=== PATIENT | female | born 1940 | race Caucasian/White ===

== ENCOUNTER 2018-01-03 10:37 | Outpatient (CLI) | payer MEDICARE ==
[~2018-01-03 10:37] MED LIST: Iopamidol 370 76% 100 ML VIAL ONE
--- NOTE | 2018-01-03 13:22 | CT ---
CT OF THE ABDOMEN AND PELVIS: DATE: 01/03/18. COMPARISON: 11/07/16. HISTORY: Carcinoid tumor, prior small bowel mass removal in 2017. TECHNIQUE: Serial axial CT imaging is obtained at 5 mm intervals from the lung bases through the pubic symphysis with intravenous and oral contrast. Coronal reformatted imaging obtained. FINDINGS: There is a small stable hiatal hernia with mild stable distal esophageal wall thickening. The imaged lung bases demonstrate central lobular emphysematous change. No free intraperitoneal air or fluid is noted. The hepatic parenchyma is markedly hypodense, evidence of steatosis. Cholecystectomy clips are prese nt. There is a tiny hypodensity in the spleen on image 20, unchanged. There is a small focus of increase d linear density within the upper abdominal mesentery anterior and inferior to the left lobe of the l iver on image 31 measuring approximately 1.1 cm, new when compared to the prior examination. Central ly, this demonstrates fat density and likely represents an area of fat necrosis. Perhaps this is rel ated to an interval abdominal surgery. Continued followup of this is advised. The pancreas, adrenal glands, and kidneys demonstrate no acute findings. There is bilateral fat-containing inguinal hernia formation, left greater than right, stable. Uterus appears surgically absent. There is no evidence for bowel inflammatory change or bowel obstruction. There is a small bowel sutu re line associated with the central upper pelvic, consistent with the patient's history of interval s mall bowel resection. The prior examination demonstrated a soft tissue mass within the central pelvi c mesentery which is no longer visualized, presumably status post surgical resection. The vascular structures demonstrate scattered atherosclerotic calcification of the abdominal aorta an d its branches. No inguinal, pelvic, mesenteric, or retroperitoneal lymphadenopathy. A tiny nonspecific hypodense lesion is seen emanating from the lower pole of the left kidney, too sma ll to characterize, likely on the basis of a cyst. The osseous structures demonstrate multilevel lower lumbar spine degenerative change with multilevel disk space narrowing and osteophyte formation, most prominent at L3-4 an L4-5. IMPRESSION: 1. Previously noted mesenteric mass on 11/07/16 examination is no longer seen. There is a nonspecifi c linear area of increased density with central fat density within the anterior mesentery of the righ t upper quadrant adjacent to the left lobe of the liver. A metastatic focus is felt unlikely given t he configuration and this most likely represents an area of fat necrosis. Continued followup is advi sed. 2. Hepatic steatosis. 3. Atherosclerotic disease as described above. POS: [facility]
== END 2018-01-03 10:38 | disposition home or self-care (01) ==
LOC: SCSCT 10:37
PROVIDERS: ATTEND Specialist
DX: D3A.00 Benign carcinoid tumor of unspecified site (principal); K76.0 Fatty (change of) liver, not elsewhere classified; I70.0 Atherosclerosis of aorta
CPT/HCPCS: 74177

== ENCOUNTER 2018-06-27 11:00 | Outpatient (CLI) | payer MEDICARE ==
--- NOTE | 2018-06-27 15:43 | CT ---
CT ABDOMEN AND PELVIS WITH CONTRAST: Multiple axial tomograms were obtained through the abdomen and pelvis with IV enhancement. Oral cont rast was given. INDICATION: History of malignant carcinoid tumor. Lower abdominal pain. COMPARISON: Comparison is made to CT of abdomen and pelvis dated 01/03/2018, 03/29/2017, and 11/07/2016. FINDINGS: Lung bases clear. The liver, spleen, and pancreas appear unremarkable. The small area of opacity adjacent to the anterior abdominal wall and the upper abdomen to the right of midline was described previously and is unchanged. Small focus of fat necrosis, possibly from allan or surgery is suspected as noted previously. Adrenal glands normal. Kidneys unremarkable. Small cyst superior left kidney unchanged. Small cyst inferior left kidney unchanged. Small bowel loops appear normal. The nodular mass in the mesentery on the exam of 11/07/2016 is no lo nger present. No evidence of recurrent mass. No mesenteric adenopathy identified. Aorta is normal caliber. No periaortic adenopathy. There are at least 2 portocaval lymph node seen which are unchan ged. IMPRESSION: Stable CT findings when compared to 01/03/2018. POS: [facility]
== END 2018-06-27 11:01 | disposition home or self-care (01) ==
LOC: SCSCT 11:00
PROVIDERS: ATTEND Specialist
DX: D3A.00 Benign carcinoid tumor of unspecified site (principal); R09.89 Other specified symptoms and signs involving the circulatory and respiratory systems
CPT/HCPCS: 74177

== ENCOUNTER 2018-08-14 14:11 | Outpatient (CLI) | payer MEDICARE ==
--- NOTE | 2018-08-14 15:41 | CT ---
LOW DOSE CT CHEST 08/14/18 HISTORY: Patient with history of 40 pack year history of smoking. History of COPD. Low does CT chest performed with coronal reconstructed images performed. CT images demonstrate extensive emphysematous changes in the right and left upper lobes, right middl e lobe and both lower lobes. Atheroclerotic calcifications seen in the aorta and coronal arteries. No definite evidence of mediastinal, axillary, or hilar lymphadenopathy seen. Two small subcentimeter nodular density seen. One measuring approximately 5.8 mm in the right upper l obe while the second pleural based lesion is seen on the posterior aspect of the right upper lobe michaela meter measuring approximately 7 mm. Both of these lesions should further be evaluated in six months t o confirm stability. IMPRESSION: Lung RADS category 3 - right upper lobe subcentimeter nodules. Repeat CT in six months recommended. POS: [facility]
== END 2018-08-14 14:12 | disposition home or self-care (01) ==
LOC: CT 14:11
PROVIDERS: ATTEND Family Medicine
DX: Z87.891 Personal history of nicotine dependence (principal); R91.8 Other nonspecific abnormal finding of lung field
CPT/HCPCS: G0297

== ENCOUNTER 2019-03-04 10:38 | Outpatient (CLI) | payer MEDICARE ==
[~2019-03-04 10:38] MED LIST changes: +Iopamidol 300 61% 100 ML VIAL FS ONE; -Iopamidol 370 76% 100 ML VIAL ONE
--- NOTE | 2019-03-04 15:40 | CT ---
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 COMPARISON: Low dose CT scan of the lungs of 08/14/[address] abdomen and pelvis of 06/27/18. FINDINGS: No mediastinal, hilar or axillary mass or lymphadenopathy is seen. No pleural or pericardial effusion s are identified. The subcentimeter nodules in the right upper lobe noted on the LDCT are less well s een on the current exam. There are changes of emphysema. Small patchy infiltrate is seen in the left upper lobe. This was not seen on the previous LDCT. There are changes of cholecystectomy. The liver, spleen, pancreas, adrenal glands, right kidney are n ormal. Small cyst in the left kidney is again seen. No free air, free fluid or lymphadenopathy is not ed in the abdomen or pelvis. No mesenteric mass is identified. The small bowel loops are not abnormal ly dilated. Subcentimeter periportal lymph nodes are stable. IMPRESSION: 1. New infiltrate in the left upper lobe suspicious for pneumonia. 2. Stable CT scan of the abdomen and pelvis. POS: [facility]
== END 2019-03-04 10:39 | disposition home or self-care (01) ==
LOC: SCSCT 10:38
PROVIDERS: ATTEND Internal Medicine Medical Oncology
DX: C7A.019 Malignant carcinoid tumor of the small intestine, unspecified portion (principal); R91.1 Solitary pulmonary nodule; N18.2 Chronic kidney disease, stage 2 (mild); D50.0 Iron deficiency anemia secondary to blood loss (chronic); K42.9 Umbilical hernia without obstruction or gangrene; N28.1 Cyst of kidney, acquired
CPT/HCPCS: 71260; 74177; Q9967

== ENCOUNTER 2019-05-12 12:53 | Outpatient (CLI) | payer MEDICARE ==
--- NOTE | 2019-05-12 14:41 | CT ---
CT CHEST WITHOUT CONTRAST CLINICAL INDICATION: Abnormal finding in lung armando. COMPARISON: 03/04/2019 FINDINGS: Aorta: Vascular calcifications are again seen in the coronary arteries as well as involving the thora cic aorta. Lungs: Emphysematous and chronic lung changes are again seen bilaterally and diffusely throughout the lungs. Patchy parenchymal density in the left upper lobe on the prior examination has improved with only linear densities now present in this region probably related to residual scarring. Minimal subcentimeter pleural-based nodular density is seen along the anterior aspect of the minor fissure. No discrete pulmonary nodule, mass, or pleural effusion is seen. Mediastinum: Lack of intravenous contrast limits evaluation of mediastinal structures, but no enlarge d lymph nodes are seen. Thyroid gland: Grossly normal nonenhanced CT appearance where visualized. Osseous structures: Mild degenerative changes in the spine. Chest wall: No abnormality visualized. Upper abdomen: Postcholecystectomy changes are again seen. No other interval change. IMPRESSION: 1. No acute findings. 2. Residual mild linear densities in the left upper lobe in region of area of parenchymal density see n on prior study which is likely related to residual mild scarring. 3. Evidence of COPD and chronic lung changes similar to prior studies. 3. No definite discrete pulmonary nodule is visualized.
== END 2019-05-12 12:54 | disposition home or self-care (01) ==
LOC: BICCT 12:53
PROVIDERS: ATTEND Internal Medicine
DX: R91.8 Other nonspecific abnormal finding of lung field (principal); J44.9 Chronic obstructive pulmonary disease, unspecified; J98.4 Other disorders of lung
CPT/HCPCS: 71250

== ENCOUNTER 2019-12-05 00:21 | Inpatient (IN) | payer MEDICARE ==
[2019-12-06 01:50] VITALS: BMI 33.0
[2019-12-06] MEDS ORDERED: Ondansetron PF 4 MG/2 ML Vial IVP PRN (01:51)
[2019-12-06] MEDS ORDERED: Ondansetron ODT 4 MG TAB PO PRN (01:51)
[2019-12-06] MEDS ORDERED: Acetaminophen 500 MG TAB PO PRN (01:51)
[2019-12-06] MEDS ORDERED: Benzonatate 100 MG CAP PO PRN (01:51)
[2019-12-06] MEDS: Mometasone 200 MCG/Formoterol 5 MCG 120 PUFF INHALER INH SCH ×2 (02:36→19:06)
[2019-12-06] MEDS ORDERED: Azithromycin 500 MG in Sodium Chloride 0.9% 250 ML 250 ML IVPB SCH ×2 (03:00→23:00)
--- NOTE | 2019-12-06 03:14 | HP ---
PRIMARY CARE PROVIDER: Dr. Brice Tolliver. PRIMARY HAIR CUTTER: Des Christianson MD CHIEF COMPLAINT: Shortness of breath. HISTORY OF PRESENT ILLNESS: This is an 78-year-old female who initially presented to [facility], complaining of increased shortness of breath. The patient states symptoms began on the date of evaluation and unable to maintain conversational speech. The patient denied any travel history or exposures and states she has been at home over the last several weeks. The patient states she remains at home and not in an institutional setting. The patient denied any specific change to her chronic medication regimens or recent prednisone exposure. The patient states her influenza and pneumonia vaccinations are current. The patient does admit to history of COPD and has been followed by Pulmonology Service on an outpatient basis routinely. The patient denied any documented fever, chills, nausea, vomiting, or diarrhea. The patient does admit to some chest pain and shortness of breath with associated anxiety. In the emergency room, the patient underwent chest imaging, showing no acute infiltrates. The patient received bronchodilator therapy with DuoNebs, Solu-Medrol 125 mg IV, Rocephin 2 g IV, Ativan, and Zithromax. The patient was also evaluated, undergoing COVID-19 rule out. The patient currently states no specific risk factors, known exposure history, or travel to endemic areas. The patient was placed on BiPAP noninvasive mechanical ventilation and maintaining O2 saturations in the 99% range on 40% FiO2. The patient was transferred to [facility] for further evaluation. PAST MEDICAL HISTORY: 1. Chronic obstructive pulmonary disease. 2. Depression. 3. Anxiety disorder. 4. Hypertension. 5. Hyperlipidemia. 6. Gastroesophageal reflux. 7. Peripheral neuropathy. 8. History of small bowel neoplasm, status post small bowel resection. PAST SURGICAL HISTORY: 1. Status post small bowel resection for carcinoid tumor. 2. Status post colonoscopy. 3. Status post hysterectomy. 4. Status post tonsillectomy. 5. Status post cholecystectomy. CURRENT MEDICATIONS: Based on review of electronic medical record; 1. Budesonide 0.25 mg nebulized b.i.d. 2. Plavix 75 mg p.o. daily. 3. BuSpar 30 mg p.o. b.i.d. 4. Lexapro 20 mg p.o. q.a.m. 5. Gabapentin 300 mg p.o. at bedtime. 6. Lorazepam 0.5 mg p.o. at bedtime p.r.n. 7. Multivitamin 1 tablet p.o. daily. 8. Nexium 20 mg p.o. daily. 9. Pravachol 20 mg p.o. at bedtime. 10. Propranolol 20 mg p.o. daily. 11. Seroquel 100 mg p.o. at bedtime. ALLERGIES: TO CODEINE AND SULFA. FAMILY HISTORY: No inheritable diseases per patient report. SOCIAL HISTORY: The patient resides in the [facility]. . No current alcohol, tobacco, or illicit drug use. REVIEW OF SYSTEMS: CONSTITUTIONAL: Negative for weight loss or gain, ability to conduct usual activities. SKIN: Negative for rash, itching. EYES: Negative for double vision, pain. ENT/MOUTH: Negative for nose bleeding, neck stiffness, pain, tenderness. CARDIOVASCULAR: Negative for palpitations, dyspnea on exertion, orthopnea. RESPIRATORY: Positive for shortness of breath. Negative for wheezing, cough, hemoptysis, fever or night sweats. GASTROINTESTINAL: Negative for poor appetite, abdominal pain, heartburn, nausea, vomiting, constipation, or diarrhea. GENITOURINARY: Negative for urgency, frequency, dysuria, nocturia. MUSCULOSKELETAL: Negative for pain, swelling. NEUROLOGIC/PSYCHIATRIC: Negative for anxiety, depression. ALLERGY/IMMUNOLOGIC: Negative for skin rash, bleeding tendency. Otherwise, negative except as stated per HPI. PHYSICAL EXAMINATION: VITAL SIGNS: On admission, blood pressure 154/91, pulse 110, respiratory rate 36, temperature 98.0 degrees Fahrenheit, and O2 saturation 99% on 100% FiO2 by CPAP. GENERAL APPEARANCE: This is an 78-year-old female, currently on BiPAP noninvasive mechanical ventilation, alert, response to questions, in moderate respiratory distress. HEENT: Pupils are equal, round, reactive to light and accommodation. Extraocular muscles are intact. No scleral icterus. No conjunctival injection. Nares patent. OP is clear. BiPAP face mask in place. NECK: Supple. No cervical adenopathy. No thyromegaly. No carotid bruits. No JVD appreciated. Cervical spine with full active and passive range of motion. No meningeal signs noted. LUNGS: With diminished breath sounds bilaterally. Occasional expiratory wheeze. Tachypnea noted. CARDIOVASCULAR: S1, S2 with tachycardia. No murmur, rub, or gallop appreciated. ABDOMEN: Obese, soft, nontender, and nondistended. Bowel sounds are positive in all [address] quadrants. PEG tube in place. EXTREMITIES: Warm and dry with fair turgor. No clubbing, cyanosis, or asymmetric edema appreciated. Pulses palpable distally at the dorsalis pedis, posterior tibial, and popliteal arteries bilaterally. Capillary refill less than 2 seconds. NEUROLOGIC: Cranial nerves 2 through 12 are grossly intact. No focal or lateralizing signs appreciated. PERTINENT LABORATORY AND X-RAY FINDINGS: Basic metabolic profile within normal limits. BNP 140. CBC within normal limits. ABG dated 12/05/2019, showed a pH of 7.36, pCO2 of 52, pO2 of 234, bicarb 29 with O2 saturation 99%. Influenza A and B antigen negative on 12/05/2019. EKG dated on 12/05/2019 by my interpretation shows sinus tachycardia with rates in the low 100s. Normal axis. No acute ST-T wave changes appreciated. Portable chest x-ray dated 12/05/2019, showed no acute cardiopulmonary process. ASSESSMENT AND PLAN: 1. Acute on chronic hypoxic hypercapnic respiratory failure. The patient will be admitted to the Critical Care unit, suspect secondary to #2. See #2 below for management. Continue oxygen supplementation to maintain O2 saturation greater than or equal to 90%. 2. Chronic obstructive pulmonary disease exacerbation. We will continue aggressive pulmonary supportive management. Solu-Medrol 40 mg IV q.6 hours with additional Dulera 2 puffs inhaled b.i.d. Zithromax 500 mg IV daily. DuoNebs q.4 hours. Consult Pulmonology Service in the a.m. for further assistance and management. 3. Anxiety disorder. We will confirm home medication regimen and initiate when available. 4. Hypertension. We will confirm home blood pressure regimen and monitor clinical response. Hydralazine 10 mg IV q.4 hours p.r.n. systolic blood pressure greater than or equal to 170. 5. Prophylaxis. SCDs while in bed. Pepcid 20 mg IV q.12 hours. Continue respiratory isolation with airborne and droplet precautions with COVID-19 rule out pending. CODE STATUS: Full. Surrogate medical decision maker is the patient's spouse. Job ID: [id number]
[2019-12-06 04:13] LABS: Band 2 % (5-11); Hemoglobin 12.1 g/dL (12.0-16.0); Lymphocytes 6 % (21-51); MDiff Complete? YES; Mean Corpuscular HGB CONC 33.2 g/dL (32.0-36.0); Mean Corpuscular Hemoglobin 33.2 pg (27.0-31.0); Mean Platelet Volume 9.6 fL (7.4-10.4); Neutrophil 92 % (42-75); Platelet Count 170 thou/uL (130-400); Platelet Morphology Comment Appears Adequate; RBC Distribution Width 12.6 % (11.5-14.5); RBC Morphology Normal; Red Blood Cell (RBC) Count 3.64 mill/uL (4.20-5.40); White Blood Cell (WBC) Count 9.1 thou/uL (4.8-10.8)
[2019-12-06 04:18] LABS: ALT (SGPT) 33 U/L (8-55); AST (SGOT) 34 U/L (5-34); Albumin 3.5 g/dL (3.4-4.8); Alkaline Phosphatase 69 U/L (40-110); Anion Gap 14 mmol/L (10-20); BUN (Urea Nitrogen) 14 mg/dL (9.8-20.1); Bilirubin, Total 0.4 mg/dL (0.2-1.2); Calc. Creatinine Clearance 70 mL/min (70-130); Calcium 8.8 mg/dL (7.8-10.44); Carbon Dioxide 24 mmol/L (23-31); Chloride 106 mmol/L (98-107); Estimated GFR-MDRD 62; Globulin 3.5 g/dL (2.4-3.5); Glucose 176 mg/dL (83-110); Sodium 140 mmol/L (136-145)
[2019-12-06] MEDS: methylPREDNISolone Sod Succ 40 MG VIAL IVP SCH ×3 (06:13→17:26)
[2019-12-06] MEDS: ALPRAZolam 0.25 MG TAB PO PRN ×2 (08:33→19:20)
[2019-12-06] MEDS ORDERED: Famotidine/PF 20 mg/2ml Vial SLOW IVP SCH (09:00)
--- NOTE | 2019-12-06 09:02 | CON ---
DATE OF CONSULTATION: 12/06/2019 35 minutes of critical time. REASON FOR CONSULTATION: COPD with exacerbation. HISTORY OF PRESENT ILLNESS: This is an 78-year-old female who presents with a week's history of increasing shortness of breath. She has COPD and is followed by Dr. Christianson. For some reason, she has been put in COVID-19 rule-out. She has no risk factors, has had no travels, had no contact with outside people, has basically just been staying home with her . She has had no fever, and her x-ray shows no infiltrates. I cannot figure out why she has been placed on rule-out status, and I will attempt to clarify that later. The patient wore BiPAP briefly overnight, but was claustrophobic and right now is doing well on a simple face mask. PAST MEDICAL HISTORY: 1. Chronic obstructive pulmonary disease. 2. Depression. 3. Anxiety. 4. Hypertension. 5. Hyperlipidemia. 6. Gastroesophageal reflux. 7. Peripheral neuropathy. PAST SURGICAL HISTORY: 1. Small bowel resection for carcinoid. 2. Cholecystectomy. 3. Hysterectomy. 4. Tonsillectomy. MEDICATIONS: Prior to admission; 1. Budesonide nebs twice daily. 2. Plavix 75 mg daily. 3. BuSpar 30 mg b.i.d. 4. Lexapro 20 mg daily. 5. Gabapentin 300 mg nightly. 6. Lorazepam 0.5 mg at night as needed. 7. Multivitamin one daily. 8. Nexium 20 mg daily. 9. Pravachol 20 mg nightly. 10. Propranolol 20 mg daily. 11. Seroquel 100 mg nightly. ALLERGIES: CODEINE AND SULFA. FAMILY MEDICAL HISTORY: Unremarkable. SOCIAL HISTORY: Not a smoker. Does not consume alcohol. Does not use illicit drugs. Quit smoking about 15 years ago. REVIEW OF SYSTEMS: Remarkable for shortness of breath, wheezing, cough, and congestion. Otherwise, 12-point review of systems negative. PHYSICAL EXAMINATION: VITAL SIGNS: Pulse blood pressure 154/73, O2 saturation 98%, respiratory rate 26, and temperature 97.9. GENERAL: She is awake, alert, in moderate respiratory distress. HEENT: Pupils react. Sclerae icteric. Oropharynx clear. NECK: No adenopathy or JVD. LUNGS: Distant breath sounds without audible wheezing. CARDIAC: S1 and S2 regular. ABDOMEN: Soft, nontender, and nondistended. EXTREMITIES: No clubbing, cyanosis, or edema. NEUROLOGIC: Nonfocal. LABORATORY DATA: White blood cell count 9.1, hematocrit 36.5, and platelet count 170. Sodium 140, potassium 4, chloride 106, CO2 of 24, BUN 14, creatinine 0.8, glucose 176. Blood gas from [facility] show compensated hypercapnia. ASSESSMENT: 1. Chronic obstructive pulmonary disease with exacerbation. 2. Acute hypoxic hypercapnic respiratory failure. PLAN: 1. Continue steroids, nebs, and antibiotics. I have switched her Zithromax into Levaquin so that we can conserve azithromycin for possible COVID patients in the future. 2. If it came down to a situation where specific beds were needed for isolation, this patient is at extremely low list for COVID and I would have no problem her moving out to a non-negative pressure room. I will clarify with administration if we need to go for with isolation procedures on low risk patients. Job ID: [id number]
[2019-12-06] MEDS: hydrALAZINE 20 MG/ML VIAL SLOW IVP PRN ×2 (10:29→18:25)
[2019-12-06] MEDS ORDERED: Lorazepam 2 MG/ML VIAL ONE (12:43)
[2019-12-06] MEDS: Lorazepam 2 MG/ML VIAL SLOW IVP PRN ×2 (16:48→20:54)
[2019-12-06] MEDS: Gabapentin 300 MG CAP PO SCH (20:53)
[2019-12-06] MEDS: busPIRone HCl 10 MG TAB PO SCH (20:53)
[2019-12-07] MEDS: methylPREDNISolone Sod Succ 40 MG VIAL IVP SCH ×5 (00:57→23:01)
[2019-12-07] MEDS: Lorazepam 2 MG/ML VIAL SLOW IVP PRN ×3 (03:38→17:55)
[2019-12-07 03:52] LABS: #Lymphocytes 1.3 thou/uL (1.20-3.40); #Monocytes 0.9 thou/uL (0.11-0.59); #Neutrophils 13.3 thou/uL (1.40-6.50); %Basophils 0.2 % (0.0-1.0); %Eosinophils 0.1 % (0.0-10.0); %Lymphocytes 8.5 % (21.0-51.0); %Monocytes 5.6 % (0.0-10.0); %Neutrophils 85.7 % (42.0-75.0); Hemoglobin 11.8 g/dL (12.0-16.0); Mean Corpuscular HGB CONC 33.5 g/dL (32.0-36.0); Mean Corpuscular Hemoglobin 33.3 pg (27.0-31.0); Mean Corpuscular Volume 99.3 fL (78.0-98.0); Mean Platelet Volume 9.6 fL (7.4-10.4); Platelet Count 190 thou/uL (130-400); RBC Distribution Width 12.5 % (11.5-14.5); Red Blood Cell (RBC) Count 3.55 mill/uL (4.20-5.40); White Blood Cell (WBC) Count 15.5 thou/uL (4.8-10.8)
[2019-12-07 04:15] LABS: Anion Gap 11 mmol/L (10-20); BUN (Urea Nitrogen) 21 mg/dL (9.8-20.1); Calc. Creatinine Clearance 81 mL/min (70-130); Calcium 8.7 mg/dL (7.8-10.44); Carbon Dioxide 28 mmol/L (23-31); Chloride 105 mmol/L (98-107); Estimated GFR-MDRD 73; Glucose 119 mg/dL (83-110); Sodium 140 mmol/L (136-145)
[2019-12-07] MEDS: Lorazepam 0.5 MG TAB PO PRN ×3 (07:33→22:50)
[2019-12-07] MEDS: Mometasone 200 MCG/Formoterol 5 MCG 120 PUFF INHALER INH SCH ×2 (07:38→19:51)
[2019-12-07] MEDS ORDERED: Famotidine/PF 20 mg/2ml Vial SLOW IVP SCH (09:00)
--- NOTE | 2019-12-07 09:13 | PDOC.EVN ---
Event Note - Event Note Event Note: Low risk COVID RO> DIscussed with Dr Christianson. following
[2019-12-07] MEDS: Famotidine 20 MG TAB PO SCH ×3 (10:33→21:33)
[2019-12-07] MEDS: Escitalopram Oxalate 20 mg Tablet PO SCH (10:34)
[2019-12-07] MEDS: busPIRone HCl 10 MG TAB PO SCH ×2 (10:34→21:13)
--- NOTE | 2019-12-07 17:10 | PRG ---
DATE OF SERVICE: 12/07/2019 SERVICE: Pulmonary Medicine. INTERVAL HISTORY: The patient is doing fine from respiratory standpoint. Overnight, she got a dose of Ativan. She slept very comfortably. She refused wearing BiPAP. This morning, she is cool, calm, and collected and has no specific complaints. PHYSICAL EXAMINATION: VITAL SIGNS: Afebrile, pulse 81, blood pressure 157/71, respirations 24, and saturation 100% on 3 L nasal cannula. GENERAL: The patient is awake and alert, in no apparent distress. LUNGS: Reduced air entry. There is a prolonged expiratory phase, but no wheezing appreciated. HEART: Normal rate. Regular. ABDOMEN: Soft, nontender, and nondistended. Bowel sounds are positive. MUSCULOSKELETAL: No cyanosis or clubbing. No pitting in the bilateral lower extremities. NEUROLOGIC: Grossly nonfocal. LABORATORY DATA: WBC 15.5, hemoglobin 11.8, and platelets 190,000. Basic metabolic profile is otherwise unremarkable. ASSESSMENT: 1. [id number] hypoxic respiratory failure. 2. Chronic obstructive pulmonary disease with acute exacerbation. 3. Anxiety disorder. DISCUSSION AND PLAN: I will schedule Klonopin twice daily. This will need to be a new outpatient medication. I had a conversation with her and her today. At this point, her anxiety spells are absolutely debilitating. She understands that being on a benzodiazepine with advanced COPD could potentially shorten her life, but at this point, the benefits they provide far outweigh any shortening of the life affect that they could have base on their assessment. She understands that she does not take this medication in order to induce sleep, but to simply minimize the impact of her anxiety spells. She will also continue using Ativan on a p.r.n. basis if she needs a little additional support. From my perspective, she is stable for transition to the floor. If she is doing well tomorrow, she can be transitioned out of the hospital to complete a 5-day course of steroids and antibiotics. On discharge, she will need to resume her home inhalers. Job ID: [id number] [facility]
[2019-12-07] MEDS: clonazePAM 0.5 MG TAB PO SCH (21:13)
[2019-12-07] MEDS: Gabapentin 300 MG CAP PO SCH (21:13)
[2019-12-07] MEDS: ALPRAZolam 0.25 MG TAB PO PRN (21:22)
[2019-12-08] MEDS: methylPREDNISolone Sod Succ 40 MG VIAL IVP SCH (05:02)
[2019-12-08 05:09] LABS: #Lymphocytes 1.1 thou/uL (1.20-3.40); #Monocytes 0.5 thou/uL (0.11-0.59); #Neutrophils 16.2 thou/uL (1.40-6.50); %Basophils 0.1 % (0.0-1.0); %Lymphocytes 6.3 % (21.0-51.0); %Monocytes 2.6 % (0.0-10.0); %Neutrophils 90.9 % (42.0-75.0); Hemoglobin 12.4 g/dL (12.0-16.0); Mean Corpuscular HGB CONC 33.1 g/dL (32.0-36.0); Mean Corpuscular Hemoglobin 33.3 pg (27.0-31.0); Mean Platelet Volume 9.3 fL (7.4-10.4); Platelet Count 227 thou/uL (130-400); RBC Distribution Width 12.5 % (11.5-14.5); Red Blood Cell (RBC) Count 3.72 mill/uL (4.20-5.40); White Blood Cell (WBC) Count 17.8 thou/uL (4.8-10.8)
[2019-12-08 05:28] LABS: Anion Gap 10 mmol/L (10-20); BUN (Urea Nitrogen) 24 mg/dL (9.8-20.1); Calc. Creatinine Clearance 78 mL/min (70-130); Calcium 8.9 mg/dL (7.8-10.44); Carbon Dioxide 30 mmol/L (23-31); Chloride 103 mmol/L (98-107); Estimated GFR-MDRD 70; Glucose 127 mg/dL (83-110); Potassium 4.1 mmol/L (3.5-5.1); Sodium 139 mmol/L (136-145)
[2019-12-08] MEDS ORDERED: Albuterol 200 PUFF (6.7GM INHALER) INH SCH ×2 (06:30→13:00)
[2019-12-08] MEDS ORDERED: predniSONE 20 MG TAB PO SCH (08:00)
[2019-12-08] MEDS: Mometasone 200 MCG/Formoterol 5 MCG 120 PUFF INHALER INH SCH (08:00)
[2019-12-08] MEDS: Famotidine 20 MG TAB PO SCH (08:02)
[2019-12-08] MEDS: busPIRone HCl 10 MG TAB PO SCH (08:03)
[2019-12-08] MEDS: clonazePAM 0.5 MG TAB PO SCH (08:03)
[2019-12-08] MEDS: Escitalopram Oxalate 20 mg Tablet PO SCH (08:03)
[2019-12-08] MEDS: ALPRAZolam 0.25 MG TAB PO PRN (12:39)
--- NOTE | 2019-12-08 15:01 | DIS ---
DATE OF ADMISSION: 12/06/2019 DATE OF DISCHARGE: 12/08/2019 PRIMARY CARE PROVIDER: Dr. Brice Tolliver. DISCHARGE DIAGNOSES: 1. Acute on chronic hypoxic respiratory failure. 2. Chronic obstructive pulmonary disease exacerbation. 3. Anxiety disorder. CONDITION OF PATIENT ON THE DAY OF DISCHARGE: Stable. I assessed Ms. Jolly on the day of discharge. She reports feeling anxious, but otherwise feels better. Vital signs are stable. S1 and S2 are heard, regular. She has occasional expiratory wheeze. DISCHARGE MEDICATIONS: She has been started on: 1. Clonazepam 1 mg two times a day. 2. Levofloxacin 500 mg daily for 3 more days. 3. Prednisone 40 mg daily for 3 more days. Otherwise, no change was made to her pre-admission home medications, which include: 1. Aspirin 81 mg daily. 2. Budesonide nebulizer two times a day. 3. Buspirone 30 mg two times a day. 4. Calcium 1200 mg daily. 5. Vitamin D3 of 400 units daily. 6. Cilostazol 100 mg two times a day. 7. Lexapro 20 mg daily. 8. Perforomist 20 mcg nebulizers two times a day. 9. Gabapentin 300 mg at bedtime. 10. Multivitamins one tablet daily. 11. Vitamin B complex one tablet daily. 12. Tramadol p.r.n. 13. DuoNeb p.r.n. CONSULTATIONS DURING THIS HOSPITALIZATION: Pulmonology, . POST ACUTE CARE FOLLOWUP: With primary care provider in 3 days and with pulmonology, Dr. Christianson in 2 to 3 weeks. HOSPITAL COURSE: Ms. Jolly is a pleasant 78-year-old lady, who was admitted to [facility] on December 06, 2019 for acute on chronic hypoxic respiratory failure. Please refer to Dr. Crouch's history and physical note dated December 06, 2019. Prior to the admission, COVID-19 test was also sent out. Pulmonology Service fact that she did not have any risk factors for a COVID infection. The test came back as indeterminate. She has been cleared for discharge by Pulmonology Service. Pulmonology Service discussed with the patient and regarding starting clonazepam for anxiety. The risks were also discussed. She is being discharged home on clonazepam. Many thanks for allowing me to participate in your patient's care. Please feel free to contact me with any questions or concerns. DIET: Regular. ACTIVITY: As tolerated. DISCHARGE DESTINATION: Home. TIME SPENT: Total amount of time spent coordinating this discharge: 20 minutes. Job ID: [id number]
--- NOTE | 2019-12-08 15:54 | PRG ---
DATE OF SERVICE: 12/08/2019 SERVICE: Pulmonary Medicine. INTERVAL HISTORY: Because of the COVID issue, nebulized medications have been stopped. The patient does not have enough lung function to get non-nebulized medications, to where she needs them. As such, she is begging us in a tearful fashion to send her home. Her breathing has improved since she presented to the emergency department. At this point, she feels that she can get along without the hospital's assistance. Furthermore, her COVID testing came back inconclusive. At this point, she is close to the usual state of health and had not had any overnight events. I counseled her about maintaining social distance and actually self quarantining for the next 14 days because we had inconclusive COVID, but honestly, I am doubtful that she ever had this virus. PHYSICAL EXAMINATION: VITAL SIGNS: Afebrile, pulse 87, blood pressure 150/60, respirations 16, and saturation 96% on 3 L nasal cannula. GENERAL: The patient is awake and alert, in no apparent distress. LUNGS: Decreased air entry, which is baseline for her. There is a prolonged expiratory phase. I do not hear enough air movement to hear wheezing or rhonchi or crackles. HEART: Normal rate, regular. ABDOMEN: Soft, nontender, nondistended. Bowel sounds are positive. MUSCULOSKELETAL: No cyanosis or clubbing. There is no pitting in the bilateral lower extremities. NEUROLOGIC: Grossly nonfocal. LABORATORY DATA: WBC is 17.8, hemoglobin 12.4, and platelets 227,000. Basic metabolic profile is otherwise unremarkable. ASSESSMENT: 1. Acute on chronic hypoxic respiratory failure, resolved to baseline. 2. Chronic obstructive pulmonary disease with acute exacerbation. 3. Anxiety disorder with agoraphobia. ASSESSMENT: We will increase her Klonopin to 1 mg twice daily. She will resume her home inhalers on discharge from the hospital. She will need 5 days of steroids and 5 days of antibiotics. I have counseled her to return to the emergency department immediately should she have increasing respiratory difficulties. Furthermore, I would like for her to self quarantine for 14 days, though I think it is unlikely that she suffers from COVID, being that she had no exposures and lives a reclusive life with her agoraphobia. At this point, I think the best thing to do for this patient will be simply send her home. Her horrendous anxiety state is interfering with her recovery. Job ID: [id number] MTDD
[2019-12-08 16:21] VITALS: BP 169/81; TEMP 98
[2019-12-08] MEDS ORDERED: clonazePAM 1 MG TAB PO SCH (21:00)
== END 2019-12-08 15:39 | disposition home or self-care (01) | DRG 189 ==
LOC: CCU 12-06 00:59 → T4-B 12-07 13:20
PROVIDERS: ADMIT Family Medicine; ATTEND Family Medicine
PROC: 5A09357 Assistance with Respiratory Ventilation, Less than 24 Consecutive Hours, Continuous Positive Airway Pressure (ICD-10-PCS; principal; 2019-12-06)
DX: J96.21 Acute and chronic respiratory failure with hypoxia (principal); J44.1 Chronic obstructive pulmonary disease with (acute) exacerbation; J96.22 Acute and chronic respiratory failure with hypercapnia; F32.9 Major depressive disorder, single episode, unspecified; F41.9 Anxiety disorder, unspecified; I10 Essential (primary) hypertension; E78.5 Hyperlipidemia, unspecified; K21.9 Gastro-esophageal reflux disease without esophagitis; G62.9 Polyneuropathy, unspecified; Z88.8 Allergy status to other drugs, medicaments and biological substances; Z85.068 Personal history of other malignant neoplasm of small intestine; Z90.49 Acquired absence of other specified parts of digestive tract; Z90.710 Acquired absence of both cervix and uterus; Z79.51 Long term (current) use of inhaled steroids; Z79.02 Long term (current) use of antithrombotics/antiplatelets; Z79.899 Other long term (current) drug therapy; Z88.5 Allergy status to narcotic agent; Z88.2 Allergy status to sulfonamides
CPT/HCPCS: 36415; 80048; 80053; 85007; 85025; 85027; 94640; 94660; 94664; J0360; J1956; J2060; J2920; J7512; J7620; S0028

== ENCOUNTER 2020-05-06 23:46 | Inpatient (IN) | payer MEDICARE, OTHER ==
[2020-05-06] MEDS ORDERED: Albuterol Sulfate 2.5 mg/3 ml Neb ONE (23:57)
[2020-05-06] MEDS ORDERED: Albuterol Sulfate 2.5 mg/0.5 ml Neb ONE (23:57)
[2020-05-06] MEDS ORDERED: Acetaminophen 650 MG Suppository ONE (23:59)
[2020-05-07 00:14] LABS: Base Excess-Venous 2.8 mmol/L (-2.0 to 3.0); Bicarbonate (HCO3v) 31.4 mmol/L (22.0-28.0); CO2 Tension (PvCO2) 64.4 mmHg (40.0-50.0); Calcium, Ionized 1.07 mmol/L (See Comments:); Chloride 103 mmol/L (98-107); Hemoglobin - Calc 14.9 g/dL (12.0-16.0); Sodium 142 mmol/L (138-145); T. Carbon Dioxide 33.4 mmol/L (22.0-28.0); vO2 Saturation-calc 99.6 % (60.0-85.0)
[2020-05-07 00:17] LABS: Analyzer IN Cardio ER; Base Excess (BEa) 0.8 mEq/L (-2.0 to +3.0); Calcium, Ionized (arterial) 1.13 mmol/L (1.12-1.30); Carboxyhemoglobin (COHb) 0.5 gm% (0.0-3.0); Hemoglobin (Hb) 13.8 g/dL (12.0-16.0); O2 Tension (PaO2), arterial 411.2 mmHg (> 60.0); Potassium - ABG Lab 3.74 mmol/L (3.70-5.30); pH, Arterial 7.28 (7.35-7.45)
[2020-05-07 00:18] LABS: CO2 Tension 62.9 mmHg (35.0-45.0); Puncture Site L RADIAL
[2020-05-07 00:19] LABS: ALV-art Gradient 223.175 (0-20)
[2020-05-07 00:19] LABS: #Basophils 0.1 thou/uL (0.0-0.2); #Eosinphils 0.6 thou/uL (0.0-0.7); #Monocytes 1.6 thou/uL (0.11-0.59); #Neutrophils 11.7 thou/uL (1.40-6.50); %Basophils 0.8 % (0.0-1.0); %Eosinophils 3.4 % (0.0-10.0); %Lymphocytes 22.1 % (21.0-51.0); %Neutrophils 64.7 % (42.0-75.0); Hemoglobin 13.5 g/dL (12.0-16.0); Mean Corpuscular HGB CONC 33.8 g/dL (32.0-36.0); Mean Corpuscular Hemoglobin 33.9 pg (27.0-31.0); Platelet Count 254 thou/uL (130-400); RBC Distribution Width 12.9 % (11.5-14.5); Red Blood Cell (RBC) Count 3.99 mill/uL (4.20-5.40)
[2020-05-07] MEDS ORDERED: Lorazepam 2 MG/ML VIAL ONE (00:28)
[2020-05-07 00:39] LABS: ALT (SGPT) 28 U/L (8-55); AST (SGOT) 46 U/L (5-34); Albumin 3.7 g/dL (3.4-4.8); Alkaline Phosphatase 79 U/L (40-110); Anion Gap 15 mmol/L (10-20); BUN (Urea Nitrogen) 9 mg/dL (9.8-20.1); Bilirubin, Total 0.8 mg/dL (0.2-1.2); Calc. Creatinine Clearance 0 mL/min (70-130); Calcium 8.7 mg/dL (7.8-10.44); Carbon Dioxide 27 mmol/L (23-31); Chloride 99 mmol/L (98-107); Estimated GFR-MDRD 61; Globulin 3.7 g/dL (2.4-3.5); Glucose 166 mg/dL (83-110); Potassium 3.9 mmol/L (3.5-5.1); Protein, Total 7.4 g/dL (6.0-8.3); Sodium 137 mmol/L (136-145)
[2020-05-07] MEDS ORDERED: Cefepime 2 GM VIAL ONE (00:43)
[2020-05-07] MEDS ORDERED: Vancomycin 1 GM/200 ML BAG ONE (00:43)
[2020-05-07] MEDS ORDERED: Aspirin 300 MG Suppository ONE (01:05)
[2020-05-07 01:16] LABS: CKMB 8.9 ng/mL (0-6.6)
[2020-05-07 01:25] LABS: SARS-CoV-2 NAA Rapid Test Not Detected (NotDetected)
[2020-05-07] MEDS ORDERED: Enoxaparin Sodium 100 MG/ML SYRINGE ONE (01:51)
[2020-05-07] MEDS ORDERED: Lorazepam 2 MG/ML VIAL SLOW IVP PRN (04:26)
[2020-05-07] MEDS ORDERED: methylPREDNISolone Sod Succ/PF 125 MG/2 ML VIAL IVP SCH (04:45)
[2020-05-07] MEDS: Azithromycin 500 MG in Sodium Chloride 0.9% 250 ML 250 ML IVPB SCH (05:13)
[2020-05-07 05:19] LABS: Actual Bicarbonate (HCO3a) 27.5 mEq/L (22-28); Base Excess (BEa) -0.3 mEq/L (-2.0 to +3.0); CO2 Tension 59.7 mmHg (35.0-45.0); Calcium, Ionized (arterial) 1.06 mmol/L (1.12-1.30); Carboxyhemoglobin (COHb) 0.3 gm% (0.0-3.0); Hemoglobin (Hb) 12.6 g/dL (12.0-16.0); Potassium - ABG Lab 4.16 mmol/L (3.70-5.30); pH, Arterial 7.28 (7.35-7.45)
[2020-05-07 05:26] LABS: Puncture Site LRA
[2020-05-07] MEDS ORDERED: Propofol 1,000 MG/100 ML VIAL IV ONE (05:42)
--- NOTE | 2020-05-07 05:45 | PDOC.EVN ---
Event Note - Event Note Event Note: following up on the patient who is still " working hard " to breath , although her ABG is unchanged she is reporting getting tired of breathing. I had a long discussion with her (over the phone) , we spoke about possibly needing to intubate her, he is ok with that if it is needed to be done. I am concerned that she will progress to a respiratory arrest , for that reason we will proceed with intubation.
--- NOTE | 2020-05-07 05:49 | HP ---
REASON FOR ADMISSION: Shortness of breath. HISTORY OF PRESENT ILLNESS: This is an 79-year-old female patient who is known to have COPD, was admitted to our hospital in November of this year for COPD exacerbation. During her stay, she was started on IV antibiotics and IV Solu-Medrol. She was seen by pulmonology. She did improve and then was sent home, but since then she has been having shortness of breath that has progressed to shortness of breath on activity than at rest and for the past couple weeks she has been hardly able to do anything and on Saturday, couple of days ago, she had a severe episode. Her was planning on calling the ambulance, but she felt a bit better after a while, so he held off until today. She had severe shortness of breath and inability to do any minimal activity. For that reason, he brought her to the ER. At the ER, patient was very tachypneic and pulse ox was 80%. She was started on CPAP, but she could not tolerate that, then she was transitioned to BiPAP. She was noted to be very anxious. She was given Ativan with good result. Subsequently, she was admitted to [facility], [place]. Currently, she continues to be very short of breath, tremulous and very anxious. She is known to get very anxious whenever she is away from her . I did call her and obtained most of the above information. He tells me that she has not been having any fevers or chills. No sick contacts. No recent travel. PAST MEDICAL HISTORY: 1. COPD. 2. Anxiety. 3. She is oxygen dependent. 4. High cholesterol that resolved, not on any medication. 5. Restless legs syndrome. SOCIAL HISTORY: She quit smoking a long time ago. Does not drink alcohol. FAMILY HISTORY: Negative for premature coronary artery disease. ALLERGY: As per records, she is she is allergic to steroids, but upon further discussion with her , he could not tell me what was the reaction to the steroids. I suspect that made her a bit nervous with taking steroids and I did review previous admissions and she was on IV Solu-Medrol in November. On the other hand, she is allergic to sulfa and codeine. REVIEW OF SYSTEMS: All systems reviewed except the above mentioned, found to be negative. PHYSICAL EXAMINATION: GENERAL: She is awake, alert, oriented, does appear short of breath. VITAL SIGNS: Her blood pressure is 137/61, heart rate of 109, saturating 95% on BiPAP. Temperature is 98.1. HEENT: Head is nontraumatic, normocephalic. Pupils equal, reactive. Extraocular movements are intact. Nonicteric sclerae. Well injected conjunctivae. Oral mucosa normal. Nasal mucosa normal. NECK: Supple. No adenopathy. No murmur. Thyroid is not palpable. Trachea is midline. No supraclavicular adenopathy. S1, S2 regular. No murmur. No gallop. No friction rubs. No displacement of PMI. LUNGS: Decreased air entry bilaterally. Bowel sounds are positive. Nontender abdomen. No hepatosplenomegaly. EXTREMITIES: No lower extremity edema. No cyanosis. NEUROLOGIC: Cranial nerves 2-12 within normal limits. Normal motor function. Normal sensory function. Normal reflexes. LABORATORY DATA: Blood work shows WBC of 18, hemoglobin of 13.5. Sodium 142, potassium of 4, troponin of 1.479, repeat is 2.08. ABG shows a pCO2 of 62.9, pH of 7.28. IMAGING: Chest x-ray shows evidence of right lower lobe pneumonia. As per my read. EKG shows sinus tachycardia with ST-segment changes in the inferior leads. ASSESSMENT AND PLAN: This is an 79-year-old female patient presenting with shortness of breath secondary to worsening chronic obstructive pulmonary disease in the setting of most likely pneumonia. Also abnormal troponins could be demand ischemia versus acute coronary syndrome. Pulmonary: The patient will be admitted to [facility] [place]. She will be on BiPAP. I will start her on IV Solu-Medrol and nebulizer treatments also. She will be on IV cefepime and azithromycin for her pneumonia. We will ask pulmonology to see her. I did have a long discussion with her and I told him that she might need to at some point to be intubated, if she does not improve. He is in favor of that option, if necessary. Psychiatry: The patient is very anxious. She did respond well to IV Ativan given in the ER. We will have her on IV Ativan on as needed basis. Cardiac: The patient does have positive troponin. This could be due to demand ischemia, but her troponin still is trending up. She did receive a therapeutic dose of Lovenox in the ER, which will cover her for another 12 hours, awaiting Cardiology input. For deep venous thrombosis prophylaxis with sequential compression devices. One hour of critical care time was spent to manage this patient. Job ID: [id number]
[2020-05-07] MEDS ORDERED: Fentanyl BOLUS 250 ML IVPB PRN (06:37)
[2020-05-07] MEDS ORDERED: Propofol BOLUS 1,000 MG/100 ML VIAL IV PRN (06:37)
[2020-05-07] MEDS ORDERED: DISCONTINUE PREVIOUS NARCOTIC PAIN MEDICATIONS AND BENZODIAZEPINES FS SCH (06:37)
[2020-05-07] MEDS ORDERED: Morphine 2 MG/ML VIAL SLOW IVP PRN (06:37)
[2020-05-07] MEDS ORDERED: Ventilator Sedation Protocol 1 EACH FS SCH (06:45)
[2020-05-07 07:04] LABS: Actual Bicarbonate (HCO3a) 21.7 mEq/L (22-28); Base Excess (BEa) -5.1 mEq/L (-2.0 to +3.0); CO2 Tension 47.3 mmHg (35.0-45.0); Calcium, Ionized (arterial) 1.06 mmol/L (1.12-1.30); Carboxyhemoglobin (COHb) 0.2 gm% (0.0-3.0); Hemoglobin (Hb) 12.3 g/dL (12.0-16.0); O2 Tension (PaO2), arterial 176.4 mmHg (> 60.0); pH, Arterial 7.28 (7.35-7.45)
[2020-05-07 07:05] LABS: Puncture Site LRA
[2020-05-07 07:12] LABS: ALV-art Gradient 192.275 (0-20)
[2020-05-07] MEDS: Lorazepam 2 MG/ML VIAL SLOW IVP PRN ×3 (07:12→09:30)
[2020-05-07 07:16] LABS: Critical Call Chem Troponin I RESULT DECREASING; Troponin I 1.744 ng/mL (< 0.028)
[2020-05-07] MEDS ORDERED: Vecuronium 10 MG VIAL IVP PRN (07:56)
[2020-05-07] MEDS ORDERED: Vecuronium 10 MG VIAL ONE (07:58)
--- NOTE | 2020-05-07 08:18 | RAD ---
CHEST 1 VIEW: INDICATION: History of COPD. COMPARISON: Prior exam dated 12/05/2019. FINDINGS: There are interstitial and airspace opacities involving both lower lobes which are new, suspicious fo r pneumonia or aspiration superimposed on moderate fibrotic change and chronic obstructive pulmonary disease. Mild cardiomegaly persists. No pleural effusion or pneumothorax is evident. IMPRESSION: 1. Findings suspicious for bibasilar pneumonia or aspiration. 2. Prominent chronic obstructive pulmonary disease change. 3. Mild cardiomegaly. POS: BH
[2020-05-07] MEDS: Sodium Chloride 0.45% 1,000 ML IV SCH ×2 (08:20→21:54)
[2020-05-07] MEDS: Pantoprazole 40 MG VIAL IVP SCH (08:20)
[2020-05-07] MEDS: Enoxaparin Sodium 40 MG/0.4 ML SYRINGE SC SCH (08:21)
--- NOTE | 2020-05-07 08:25 | RAD ---
CHEST 1 VIEW: INDICATION: An 79-year-old female with intubation. COMPARISON: Prior exam dated 05/07/2020 at 12:01 a.m. IMPRESSION: Since the comparison examination, there is worsening pulmonary vascular congestion with interstitial edema. There are worsening bilateral pleural effusions. Opacities within both lower lobes persist. No pneumothorax is evident. ET tube projects just beyond the thoracic inlet. Gastric catheter proj ects beyond the left hemidiaphragm and field of view. Osseous structures are unchanged. POS: BH
--- NOTE | 2020-05-07 08:53 | CON ---
DATE OF CONSULTATION: 05/07/2020 TIME SPENT: 45 minutes critical care time. REASON FOR CONSULTATION: Acute respiratory failure. HISTORY OF PRESENT ILLNESS: Ms. Jolly is an 79-year-old who presented last night to the hospitalist group with acute shortness of breath typical of a COPD exacerbation. She was initially tried on BiPAP, but failed and had to be intubated and is now on mechanical ventilation and looks like the main reason she had to be intubated was anxiety related to the BiPAP. PAST MEDICAL HISTORY: 1. COPD requiring home oxygen. 2. Restless legs syndrome. 3. Anxiety. 4. Depression. 5. Hypertension. 6. Hyperlipidemia. 7. Gastroesophageal reflux. 8. Peripheral neuropathy. PAST SURGICAL HISTORY: 1. Small bowel resection for carcinoid. 2. Cholecystectomy. 3. Hysterectomy. 4. Tonsillectomy. SOCIAL HISTORY: The patient quit smoking about 15 years ago. Does not consume alcohol. Does not use illicit drugs. ALLERGIES: CODEINE AND SULFA. REVIEW OF SYSTEMS: Cannot be obtained because the patient is on mechanical ventilation. HOME MEDICATIONS: 1. Escitalopram 20 mg daily. 2. Colestipol 2 g daily. 3. Vitamin B complex one tablet daily. 4. Multivitamin one daily. 5. DuoNeb 3 times daily. 6. Perforomist b.i.d. 7. Cholecalciferol 400 units daily. 8. Calcium 2 tablets daily. 9. Budesonide 0.2 mg b.i.d. 10. Aspirin 81 mg daily. 11. Buspirone 30 mg daily. 12. Ativan 0.5 mg as needed. 13. Gabapentin 600 mg b.i.d. 14. Klonopin 1 mg b.i.d. 15. Cilostazol 100 mg b.i.d. PHYSICAL EXAMINATION: VITAL SIGNS: Heart rate 110, blood pressure 110/39, O2 saturation 94%, and respiratory rate 18. GENERAL: This patient is very agitated, on mechanical ventilation. HEENT: Pupils are reactive. Sclerae are anicteric. Oropharynx clear. NECK: No adenopathy or JVD. LUNGS: Poor air movement, but no audible wheezing. CARDIOVASCULAR: S1 and S2. Tachycardic. ABDOMEN: Soft and nontender. EXTREMITIES: No clubbing, cyanosis, or edema. LABORATORY DATA: COVID-19 test was negative. White blood cell count 18, hematocrit 40, and platelet count 254. A pH 7.28, pCO2 of 47, and PO2 of 176. SIMV rate 20, tidal volume 450, PEEP 5, pressure support 10, and FiO2 of 60%. Sodium 142, potassium 4, chloride 103, BUN 9, creatinine 0.8, and glucose 166. Troponin 1.7. Chest x-ray shows hyperinflation and chronic interstitial changes bilaterally. ET tube in good position. ASSESSMENT: 1. Acute respiratory failure related to chronic obstructive pulmonary disease exacerbation. 2. Underlying severe chronic obstructive pulmonary disease. 3. Anxiety. PLAN: The patient will be kept intubated. She may require intermittent trial secondary to her agitation. She will be deeply sedated. We will be happy to follow with you. Job ID: [id number]
[2020-05-07] MEDS ORDERED: Aspirin 325 MG TAB PER TUBE SCH (09:00)
[2020-05-07] MEDS ORDERED: Aspirin 325 mg Enteric Coated Tablet PO SCH (09:00)
[2020-05-07] MEDS ORDERED: Prevnar 13-Val Conj/PF 0.5 ML SYRINGE IM ONE (09:00)
[2020-05-07] MEDS: Cefepime 2 GM in Sodium Chloride 0.9% 100 ML IVPB SCH ×2 (09:29→16:32)
[2020-05-07] MEDS: Gabapentin 300 MG CAP PO SCH ×2 (09:30→21:53)
[2020-05-07] MEDS: Aspirin Chewable 81 MG TAB PER TUBE SCH (09:30)
[2020-05-07] MEDS: Escitalopram Oxalate 20 mg Tablet PER TUBE SCH (09:30)
[2020-05-07] MEDS: busPIRone HCl 10 MG TAB PER TUBE SCH ×2 (09:30→21:53)
[2020-05-07] MEDS: Propofol 1,000 MG/100 ML VIAL IV PRN ×3 (09:31→21:54)
[2020-05-07] MEDS: clonazePAM 1 MG TAB PER TUBE SCH ×2 (09:31→21:53)
--- NOTE | 2020-05-07 12:06 | CON ---
DATE OF CONSULTATION: HISTORY OF PRESENT ILLNESS: Coco Jolly is an 79-year-old white female who has seen Dr. Soto in the past for carotid disease and peripheral vascular disease. Ms. Jolly also has a history of COPD and was hospitalized here in November 2019 for COPD exacerbation. The patient currently is intubated, cannot give any history and the history is obtained from the medical record. She apparently had progressive shortness of breath and also was brought to the emergency room. Pulse oximetry was 80%. She was tachycardic with heart rates on initial EKG 151 per minute, sinus tachycardia. She was placed on BiPAP and ultimately required intubation. She apparently did not complain of any chest discomfort. She has not had any fever or chills. PAST MEDICAL HISTORY: COPD, hyperlipidemia, TIA in 2007, depression, tremors, anxiety, and peripheral vascular disease. MEDICATIONS: 1. Aspirin 81 daily. 2. Budesonide 0.25 mg nebs b.i.d. 3. Buspirone 30 mg b.i.d. 4. Calcium 2 tablets daily. 5. Vitamin D3 of 400 units daily. 6. Cilostazol 100 mg b.i.d. 7. Klonopin 1 mg b.i.d. 8. Colestipol 2 g daily. 9. Lexapro 20 mg q.a.m. 10. Perforomist 20 mcg nebs b.i.d. 11. Gabapentin 600 b.i.d. 12. DuoNeb t.i.d. p.r.n. 13. Lorazepam 0.5 mg q.8 hours p.r.n. 14. Multivitamin. 15. Vitamin B. ALLERGIES: CODEINE, SULFA, AND STEROIDS. PAST SURGICAL HISTORY: Cholecystectomy, partial hysterectomy, and then total hysterectomy, lysis of abdominal adhesions, small-bowel resection, bilateral cataract surgery, spine surgery, and appendectomy. SOCIAL HISTORY: She stopped smoking 15 years ago. She does not drink alcohol. FAMILY HISTORY AND REVIEW OF SYSTEMS: Cannot be obtained due to the patient being intubated. PHYSICAL EXAMINATION: VITAL SIGNS: Blood pressure 114/42 and pulse of 107, sinus tachycardia on the monitor. HEENT: PERRL. NECK: Supple. CHEST: Clear, but decreased breath sounds. CARDIOVASCULAR: S1 and S2 normal without any S3, S4, or murmurs. ABDOMEN: Normal bowel sounds. No tenderness. EXTREMITIES: Revealed no clubbing, cyanosis, or edema. She does have bilateral heel ulcers that are currently covered. LABORATORY DATA: EKG revealed sinus tachycardia with nonspecific ST and T-wave changes. Hemoglobin 13.5, hematocrit 40.0, white count 18,000, platelets 254, 000. PCO2 as high as 62.9 on a blood gas. Sodium 142, potassium 4.0, chloride 103, BUN 9, creatinine of 0.89, glucose 166. BNP 446.5. Troponin is up to 2.080. Chest x-ray revealed increased pulmonary vascular congestion and interstitial edema, bilateral effusions. IMPRESSION: 1. Acute respiratory failure secondary to chronic obstructive pulmonary disease exacerbation. 2. Underlying severe chronic obstructive pulmonary disease. 3. Peripheral vascular disease. 4. History of hyperlipidemia. 5. Transient ischemic attack in 2007. 6. Depression. 7. Anxiety. 8. [id number] myocardial infarction, probably type 2. 9. Former smoker. PLAN: The patient's COPD exacerbation is currently being treated. Echocardiogram will be performed to reassess left ventricular function. We will follow the patient with you. Job ID: [id number] [facility]
[2020-05-07] MEDS: methylPREDNISolone Sod Succ 40 MG VIAL IVP SCH ×3 (12:20→23:24)
[2020-05-07] MEDS: fentaNYL Citrate/PF 2,000 MCG in Sodium Chloride 0.9% 60 ML IV SCH (12:22)
--- NOTE | 2020-05-07 12:29 | PDOC.HOSPP ---
- Subjective Encounter Date: 05/07/20 Encounter Time: 11:00 Subjective: is on vent, sedated - Objective Vital Signs & Weight: Vital Signs (12 hours) Temp Pulse Resp BP Pulse Ox 05/07/20 10:26 107 H 114/42 L 05/07/20 08:00 20 98 05/07/20 06:55 20 05/07/20 06:36 119 H 165/66 H 05/07/20 06:30 126 H 05/07/20 03:56 98.1 F 05/07/20 02:54 103 H 27 H 98 05/07/20 02:35 98.2 F Weight Admit Weight 200 lb Weight 200 lb 9.93 oz Most Recent Monitor Data Heart Rate from ECG 102 NIBP 111/47 NIBP BP-Mean 68 Respiration from ECG 20 SpO2 95 I&O: 05/06/20 05/07/20 05/08/20 06:59 06:59 06:59 Intake Total 329 Output Total 155 Balance 329 -155 Result Diagrams: 05/07/20 00:06 05/07/20 00:06 Hospitalist ROS - Medication Medications: Active Medications Generic Name Dose Route Start Last Admin Trade Name Freq PRN Reason Stop Dose Admin Albuterol/Ipratropium 3 ml 05/07/20 10:30 05/07/20 10:26 Duoneb NEB 3 ml [id number] GEORGETTE Administration Aspirin 81 mg 05/07/20 09:00 05/07/20 09:30 Aspirin Chewable PER TUBE 81 mg DAILY GEORGETTE Administration Buspirone HCl 30 mg 05/07/20 09:00 05/07/20 09:30 Buspar PER TUBE 30 mg BID GEORGETTE Administration Clonazepam 1 mg 05/07/20 09:00 05/07/20 09:31 Klonopin PER TUBE 1 mg BID GEORGETTE Administration Enoxaparin Sodium 40 mg 05/07/20 09:00 05/07/20 08:21 Lovenox SC 40 mg 0900 GEORGETTE Administration Escitalopram Oxalate 20 mg 05/07/20 09:00 05/07/20 09:30 Lexapro PER TUBE 20 mg QAM GEORGETTE Administration Gabapentin 600 mg 05/07/20 09:00 05/07/20 09:30 Neurontin PO 600 mg BID GEORGETTE Administration Cefepime HCl 2 gm/ Sodium 100 mls @ 200 mls/hr 05/07/20 09:00 05/07/20 09:29 Chloride IVPB 100 mls 0100,0900,1700 GEORGETTE Administration Azithromycin 500 mg/ Sodium 250 mls @ 250 mls/hr 05/07/20 05:00 05/07/20 05: 13 Chloride IVPB 250 mls Q24HR GEORGETTE Administration Fentanyl Citrate 2,000 mcg/ 100 mls @ 0 mls/hr 05/07/20 06:37 05/07/20 12:22 Sodium Chloride IV 06/06/20 06:37 100 mls INF GEORGETTE Administration Protocol Per Protocol Sodium Chloride 1,000 mls @ 75 mls/hr 05/07/20 08:15 05/07/20 08:20 1/2 Normal Saline IV 1,000 mls .[id number] GEORGETTE Administration Lorazepam 2 mg 05/07/20 06:37 05/07/20 09:30 Ativan SLOW IVP 06/06/20 06:37 2 mg Q1H PRN Administration Breakthrough agitation Methylprednisolone Sodium Succinate 40 mg 05/07/20 12:00 05/07/20 12:20 Solu-Medrol IVP 40 mg Q6HR GEORGETTE Administration Morphine Sulfate 2 mg 05/07/20 06:37 05/07/20 07:51 Morphine SLOW IVP 06/06/20 06:37 2 mg Q1H PRN Administration Breakthrough Pain/Agitation Pantoprazole Sodium 40 mg 05/07/20 09:00 05/07/20 08:20 Protonix IVP 40 mg DAILY GEORGETTE Administration Propofol 1,000 mg 05/07/20 06:37 05/07/20 09:31 Diprivan IV 06/06/20 06:37 1,000 mg INF PRN Administration TO ACHIEVE GOAL RASS Protocol - Exam Eye: PERRL, anicteric sclera ENT: no oropharyngeal lesions, dry oral mucosa Neck: supple, no JVD Heart: RRR, no murmur Respiratory: no rales, rhonchi, wheezes Gastrointestinal: soft, non-tender, non-distended, normal bowel sounds Extremities: no cyanosis, no edema Neurological: cranial nerve grossly intact, no focal deficits Hosp A/P (1) Acute respiratory failure with hypoxia Code(s): J96.01 - ACUTE RESPIRATORY FAILURE WITH HYPOXIA Status: Acute (2) COPD exacerbation Code(s): J44.1 - CHRONIC OBSTRUCTIVE PULMONARY DISEASE W (ACUTE) EXACERBATION Status: Acute (3) NSTEMI (non-ST elevated myocardial infarction) Code(s): I21.4 - NON-ST ELEVATION (NSTEMI) MYOCARDIAL INFARCTION Status: Acute (4) Anxiety disorder Code(s): F41.9 - ANXIETY DISORDER, UNSPECIFIED Status: Chronic Qualifiers: Anxiety disorder type: generalized anxiety disorder Qualified Code(s): F41.1 - Generalized anxiety disorder (5) HTN (hypertension) Code(s): I10 - ESSENTIAL (PRIMARY) HYPERTENSION Status: Chronic Qualifiers: Hypertension type: essential hypertension Qualified Code(s): I10 - Essential (primary) hypertension (6) PVD (peripheral vascular disease) Code(s): I73.9 - PERIPHERAL VASCULAR DISEASE, UNSPECIFIED Status: Chronic (7) Dyslipidemia Code(s): E78.5 - HYPERLIPIDEMIA, UNSPECIFIED Status: Chronic - Plan got intubated for progressive sob and anxiety is on buspar, lexapro, klonopin for mood disorder/anxiety continue steroids, duonebs, brovana and pulmicort nebs, aspirn, pletal, gabapentin, zithromax and cefepime hemostable weaning from am
[2020-05-07] MEDS ORDERED: Sodium Bicarbonate Tab 325 MG TAB PER TUBE PRN (14:39)
[2020-05-07] MEDS ORDERED: Pancrelipase DR 12,000 1 CAP FS PRN (14:39)
[2020-05-07] MEDS: Cilostazol 100 MG TAB PER TUBE SCH (16:15)
[2020-05-07] MEDS: Budesonide 0.25 MG/2 ML NEB NEB SCH (18:48)
[2020-05-07] MEDS: Arformoterol 15 MCG/2 ML NEB NEB SCH (18:48)
[2020-05-08] MEDS: Cefepime 2 GM in Sodium Chloride 0.9% 100 ML IVPB SCH ×3 (02:35→16:37)
[2020-05-08] MEDS: Propofol 1,000 MG/100 ML VIAL IV PRN ×4 (03:19→23:16)
[2020-05-08 04:40] LABS: Anion Gap 10 mmol/L (10-20); BUN (Urea Nitrogen) 18 mg/dL (9.8-20.1); Calc. Creatinine Clearance 83 mL/min (70-130); Calcium 7.8 mg/dL (7.8-10.44); Carbon Dioxide 25 mmol/L (23-31); Chloride 103 mmol/L (98-107); Estimated GFR-MDRD 73; Glucose 154 mg/dL (83-110); Potassium 3.5 mmol/L (3.5-5.1); Sodium 134 mmol/L (136-145)
[2020-05-08 04:55] LABS: Band 13 % (5-11); Hemoglobin 10.5 g/dL (12.0-16.0); Lymphocytes 8 % (21-51); MDiff Complete? YES; Mean Corpuscular HGB CONC 33.7 g/dL (32.0-36.0); Mean Corpuscular Hemoglobin 33.1 pg (27.0-31.0); Mean Corpuscular Volume 98.3 fL (78.0-98.0); Mean Platelet Volume 10.7 fL (7.4-10.4); Neutrophil 79 % (42-75); Platelet Count 131 thou/uL (130-400); RBC Distribution Width 12.8 % (11.5-14.5); Red Blood Cell (RBC) Count 3.16 mill/uL (4.20-5.40); White Blood Cell (WBC) Count 12.2 thou/uL (4.8-10.8)
[2020-05-08] MEDS: methylPREDNISolone Sod Succ 40 MG VIAL IVP SCH ×4 (05:23→23:36)
[2020-05-08] MEDS: Azithromycin 500 MG in Sodium Chloride 0.9% 250 ML 250 ML IVPB SCH (05:23)
--- NOTE | 2020-05-08 06:28 | RAD ---
CHEST ONE VIEW: INDICATIONS: History of pneumonia. COMPARISON: Prior exam dated 05/07/2020. IMPRESSION: Cardiomegaly and pulmonary vascular congestion persist. Bilateral perihilar opacities, suspicious for edema, persist. Bilateral pleural and parenchymal opacities involving the lung bases persist. No pne umothorax is evident. Endotracheal tube and gastric catheter are unchanged. POS: BH
[2020-05-08] MEDS: Arformoterol 15 MCG/2 ML NEB NEB SCH ×2 (07:14→18:36)
[2020-05-08] MEDS: Budesonide 0.25 MG/2 ML NEB NEB SCH ×2 (07:15→18:36)
[2020-05-08 07:28] LABS: Actual Bicarbonate (HCO3a) 21.6 mEq/L (22-28); Base Excess (BEa) -2.8 mEq/L (-2.0 to +3.0); CO2 Tension 36.1 mmHg (35.0-45.0); Calcium, Ionized (arterial) 1.08 mmol/L (1.12-1.30); Carboxyhemoglobin (COHb) 0.2 gm% (0.0-3.0); Hemoglobin (Hb) 11.3 g/dL (12.0-16.0); O2 Tension (PaO2), arterial 74.5 mmHg (> 60.0); Potassium - ABG Lab 3.72 mmol/L (3.70-5.30); pH, Arterial 7.39 (7.35-7.45)
[2020-05-08 07:30] LABS: ALV-art Gradient 94.275 (0-20); Puncture Site LRA
[2020-05-08] MEDS: clonazePAM 1 MG TAB PER TUBE SCH ×2 (08:21→21:10)
[2020-05-08] MEDS: Cilostazol 100 MG TAB PER TUBE SCH ×2 (08:21→16:36)
[2020-05-08] MEDS: Gabapentin 300 MG CAP PO SCH ×2 (08:22→21:10)
[2020-05-08] MEDS: Escitalopram Oxalate 20 mg Tablet PER TUBE SCH (08:22)
[2020-05-08] MEDS: busPIRone HCl 10 MG TAB PER TUBE SCH ×2 (08:22→21:10)
[2020-05-08] MEDS: Aspirin Chewable 81 MG TAB PER TUBE SCH (08:22)
[2020-05-08] MEDS: Pantoprazole 40 MG VIAL IVP SCH (08:34)
[2020-05-08] MEDS: Enoxaparin Sodium 40 MG/0.4 ML SYRINGE SC SCH (08:34)
[2020-05-08] MEDS: Lorazepam 2 MG/ML VIAL SLOW IVP PRN ×3 (08:54→20:09)
--- NOTE | 2020-05-08 10:45 | PRG ---
DATE OF SERVICE: A 35-minute critical care time. SUBJECTIVE: The patient remains intubated on mechanical ventilation, but no acute changes overnight. OBJECTIVE: VITAL SIGNS: Temperature is 97.5, pulse 96, blood pressure 110/41. Intake 3549, output 609. HEENT: Unremarkable. NECK: No JVD. LUNGS: Clear but distant breath sounds. CARDIAC: S1 and S2, regular. ABDOMEN: Soft. EXTREMITIES: No edema. LABORATORY DATA: Today sodium 134, potassium 3.5, chloride 103, CO2 of 25, BUN 18, creatinine 0.7, glucose 154. Troponin is 1.7. A pH of 7.39, pCO2 of 36, pO2 of 74 on SIMV rate 20, tidal volume 450, PEEP 5, pressure support 10, and FiO2 of 30%. White blood cell count 12.2, hematocrit 31, and platelet count 131. Her chest x-ray shows proper position of the endotracheal tube. She may have small bilateral effusions. ASSESSMENT: 1. Acute hypoxic respiratory failure requiring mechanical ventilation. 2. Chronic obstructive pulmonary disease with exacerbation. 3. Mild hyponatremia. 4. Severe anxiety issues. PLAN: 1. I will turn down her ventilatory rate today in hopes of getting her wean over the next 48 hours. 2. Hold IV fluids. 3. Continue steroids, nebulization therapy, tube feeds. Job ID: [id number]
--- NOTE | 2020-05-08 12:03 | PDOC.HOSPP ---
- Subjective Encounter Date: 05/08/20 Encounter Time: 09:00 Subjective: is on vent, sedated - Objective Vital Signs & Weight: Vital Signs (12 hours) Pulse Resp BP Pulse Ox 05/08/20 10:39 107 H 128/56 L 05/08/20 10:00 20 05/08/20 08:00 20 98 05/08/20 07:18 81 119/48 L 05/08/20 06:00 20 05/08/20 04:00 20 05/08/20 02:30 78 122/49 L 05/08/20 02:29 92 20 95 05/08/20 02:00 20 Weight Admit Weight 200 lb Weight 200 lb 9.93 oz Most Recent Monitor Data Heart Rate from ECG 101 NIBP 119/46 NIBP BP-Mean 71 Respiration from ECG 22 SpO2 94 I&O: 05/07/20 05/08/20 05/09/20 06:59 06:59 06:59 Intake Total 329 3549.9 180 Output Total 609 125 Balance 329 2940.9 55 Result Diagrams: 05/08/20 04:04 05/08/20 04:04 Hospitalist ROS - Medication Medications: Active Medications Generic Name Dose Route Start Last Admin Trade Name Freq PRN Reason Stop Dose Admin Albuterol/Ipratropium 3 ml 05/07/20 10:30 05/08/20 10:38 Duoneb NEB 3 ml [id number] GEORGETTE Administration Arformoterol Tartrate 15 mcg 05/07/20 18:30 05/08/20 07:14 Brovana NEB 15 mcg BID-RT [facility] Administration Aspirin 81 mg 05/07/20 09:00 05/08/20 08:22 Aspirin Chewable PER TUBE 81 mg DAILY [facility] Administration Budesonide 0.25 mg 05/07/20 18:30 05/08/20 07:15 Pulmicort Neb Solution NEB 0.25 mg BID-RT [facility] Administration Buspirone HCl 30 mg 05/07/20 09:00 05/08/20 08:22 Buspar PER TUBE 30 mg BID [facility] Administration Cilostazol 100 mg 05/07/20 16:30 05/08/20 08:21 Pletal PER TUBE 100 mg BID-AC [facility] Administration Clonazepam 1 mg 05/07/20 09:00 05/08/20 08:21 Klonopin PER TUBE 1 mg BID GE[facility]TE Administration Enoxaparin Sodium 40 mg 05/07/20 09:00 05/08/20 08:34 Lovenox SC 40 mg 0900 GEORGETTE Administration Escitalopram Oxalate 20 mg 05/07/20 09:00 05/08/20 08:22 Lexapro PER TUBE 20 mg QAM GE[facility]TE Administration Gabapentin 600 mg 05/07/20 09:00 05/08/20 08:22 Neurontin PO 600 mg BID GE[facility]GETTE Administration Cefepime HCl 2 gm/ Sodium 100 mls @ 200 mls/hr 05/07/20 09:00 05/08/20 08:34 Chloride IVPB 100 mls 0100,0900,1700 GEORGETTE Administration Azithromycin 500 mg/ Sodium 250 mls @ 250 mls/hr 05/07/20 05:00 05/08/20 05: 23 Chloride IVPB 250 mls Q24HR [facility]TE Administration Fentanyl Citrate 2,000 mcg/ 100 mls @ 0 mls/hr 05/07/20 06:37 05/07/20 12:22 Sodium Chloride IV 06/06/20 06:37 100 mls INF GEORGETTE Administration Protocol Per Protocol Lorazepam 2 mg 05/07/20 06:37 05/08/20 08:54 Ativan SLOW IVP 06/06/20 06:37 2 mg Q1H PRN Administration Breakthrough agitation Methylprednisolone Sodium Succinate 40 mg 05/07/20 12:00 05/08/20 11:56 Solu-Medrol IVP 40 mg Q6HR GE[facility]TE Administration Morphine Sulfate 2 mg 05/07/20 06:37 05/07/20 07:51 Morphine SLOW IVP 06/06/20 06:37 2 mg Q1H PRN Administration Breakthrough Pain/Agitation Pantoprazole Sodium 40 mg 05/07/20 09:00 05/08/20 08:34 Protonix IVP 40 mg DAILY [facility] Administration Propofol 1,000 mg 05/07/20 06:37 05/08/20 09:30 Diprivan IV 06/06/20 06:37 1,000 mg INF PRN Administration TO ACHIEVE GOAL RASS Protocol - Exam Eye: PERRL, anicteric sclera ENT: no oropharyngeal lesions, dry oral mucosa Neck: supple, no JVD Heart: RRR, no murmur Respiratory: no wheezes, no rales, rhonchi Gastrointestinal: soft, non-tender, non-distended, normal bowel sounds Extremities: no cyanosis, no edema Neurological: cranial nerve grossly intact, no focal deficits Hosp A/P (1) Acute respiratory failure with hypoxia Code(s): J96.01 - ACUTE RESPIRATORY FAILURE WITH HYPOXIA Status: Acute (2) COPD exacerbation Code(s): J44.1 - CHRONIC OBSTRUCTIVE PULMONARY DISEASE W (ACUTE) EXACERBATION Status: Acute (3) NSTEMI (non-ST elevated myocardial infarction) Code(s): I21.4 - NON-ST ELEVATION (NSTEMI) MYOCARDIAL INFARCTION Status: Acute (4) Anxiety disorder Code(s): F41.9 - ANXIETY DISORDER, UNSPECIFIED Status: Chronic Qualifiers: Anxiety disorder type: generalized anxiety disorder Qualified Code(s): F41.1 - Generalized anxiety disorder (5) HTN (hypertension) Code(s): I10 - ESSENTIAL (PRIMARY) HYPERTENSION Status: Chronic Qualifiers: Hypertension type: essential hypertension Qualified Code(s): I10 - Essential (primary) hypertension (6) PVD (peripheral vascular disease) Code(s): I73.9 - PERIPHERAL VASCULAR DISEASE, UNSPECIFIED Status: Chronic (7) Dyslipidemia Code(s): E78.5 - HYPERLIPIDEMIA, UNSPECIFIED Status: Chronic - Plan got intubated for progressive sob and anxiety on admission is on buspar, lexapro, klonopin for mood disorder/anxiety continue steroids, duonebs, brovana and pulmicort nebs, aspirn, pletal, gabapentin, zithromax and cefepime hemostable weaning per pulm advice
[2020-05-08] MEDS: fentaNYL Citrate/PF 2,000 MCG in Sodium Chloride 0.9% 60 ML IV SCH (23:17)
[2020-05-09] MEDS: Cefepime 2 GM in Sodium Chloride 0.9% 100 ML IVPB SCH ×3 (00:16→17:57)
[2020-05-09] MEDS: Propofol 1,000 MG/100 ML VIAL IV PRN ×4 (03:55→21:25)
[2020-05-09] MEDS: methylPREDNISolone Sod Succ 40 MG VIAL IVP SCH ×3 (05:18→17:56)
[2020-05-09] MEDS: Azithromycin 500 MG in Sodium Chloride 0.9% 250 ML 250 ML IVPB SCH (05:18)
[2020-05-09 07:52] LABS: Actual Bicarbonate (HCO3a) 23.2 mEq/L (22-28); Base Excess (BEa) -1.9 mEq/L (-2.0 to +3.0); CO2 Tension 41.1 mmHg (35.0-45.0); Calcium, Ionized (arterial) 1.11 mmol/L (1.12-1.30); Carboxyhemoglobin (COHb) 0.1 gm% (0.0-3.0); O2 Tension (PaO2), arterial 74.8 mmHg (> 60.0); Potassium - ABG Lab 4.22 mmol/L (3.70-5.30); pH, Arterial 7.37 (7.35-7.45)
[2020-05-09 07:53] LABS: Puncture Site LRA
[2020-05-09 07:54] LABS: ALV-art Gradient 87.725 (0-20)
[2020-05-09] MEDS: Budesonide 0.25 MG/2 ML NEB NEB SCH ×2 (07:56→18:35)
[2020-05-09] MEDS: Arformoterol 15 MCG/2 ML NEB NEB SCH ×2 (07:56→18:35)
[2020-05-09] MEDS ORDERED: Furosemide 40 MG/4 ML VIAL SLOW IVP SCH (08:00)
--- NOTE | 2020-05-09 08:15 | PRG ---
DATE OF SERVICE: 05/09/2020 SUBJECTIVE: The patient remains intubated on mechanical ventilation. She is fairly sedate. OBJECTIVE: VITAL SIGNS: Temp 99, pulse 94, blood pressure 127/47, O2 saturation 97%. HEENT: Unremarkable. NECK: No JVD. LUNGS: She has some mild end-expiratory wheeze. She is using abdominal muscles for respiration. CARDIAC: S1 and S2. Regular. ABDOMEN: Soft and nontender. EXTREMITIES: No clubbing, cyanosis, or edema. LABORATORY DATA: Sodium 134, potassium 3.5, chloride 103, CO2 of 25, BUN 18, creatinine 0.7, glucose 154. White count 12, hematocrit 31, and platelet count 131. A pH 7.37, pCO2 of 41, PO2 of 74. X-ray continues to show some mild pulmonary edema. ASSESSMENT: 1. Acute hypoxic respiratory failure requiring mechanical ventilation. 2. Chronic obstructive pulmonary disease with exacerbation. 3. Mild hyponatremia. 4. Anxiety issues. PLAN: 1. Going to give her a dose of diuretics. 2. Decreased respiratory rate on vent. 3. Hopefully extubate tomorrow if she goes does okay today. Job ID: [id number]
--- NOTE | 2020-05-09 08:32 | RAD ---
PORTABLE CHEST: HISTORY: Pneumonia. COMPARISON: 05/08/2020. FINDINGS/IMPRESSION: ET Tube remains in place and is unchanged. Bibasilar infiltrates or atelectasis with small effusions again noted. No significant change from yesterday. POS: [facility]
[2020-05-09] MEDS: Aspirin Chewable 81 MG TAB PER TUBE SCH (09:03)
[2020-05-09] MEDS: Cilostazol 100 MG TAB PER TUBE SCH ×2 (09:03→15:52)
[2020-05-09] MEDS: Gabapentin 300 MG CAP PO SCH ×2 (09:04→21:21)
[2020-05-09] MEDS: Enoxaparin Sodium 40 MG/0.4 ML SYRINGE SC SCH (09:04)
[2020-05-09] MEDS: Pantoprazole 40 MG VIAL IVP SCH (09:04)
[2020-05-09] MEDS: Escitalopram Oxalate 20 mg Tablet PER TUBE SCH (09:04)
[2020-05-09] MEDS: clonazePAM 1 MG TAB PER TUBE SCH ×2 (09:08→21:21)
[2020-05-09] MEDS: busPIRone HCl 10 MG TAB PER TUBE SCH ×2 (09:08→21:21)
--- NOTE | 2020-05-09 10:19 | PDOC.CPN ---
- Subjective Date: 05/09/20 Time: 08:30 Interval history: The pt seen and examined. No overnight events. On Vent with vent sedation. - Objective Allergies/Adverse Reactions: Allergies Allergy/AdvReac Type Severity Reaction Status Date / Time codeine Allergy Verified 12/04/19 18:30 Sulfa (Sulfonamide Allergy Verified 12/04/19 18:30 Antibiotics) STEROIDS Allergy Uncoded 12/04/19 18:30 Visit Medications: Current Medications Albuterol/Ipratropium (Duoneb) 3 ml NEB [id number] GEORGETTE Last Admin: 05/09/20 07:55 Dose: 3 ml Lipase/Protease/Amylase ([place] [id number]) 1 cap FS .PER PROTOCOL PRN PRN Reason: TUBE OCCLUSION PROTOCOL Arformoterol Tartrate (Brovana) 15 mcg NEB BID-RT [facility] Last Admin: 05/09/20 07:56 Dose: 15 mcg Aspirin (Aspirin Chewable) 81 mg PER TUBE DAILY [facility] Last Admin: 05/09/20 09:03 Dose: 81 mg Budesonide (Pulmicort Neb Solution) 0.25 mg NEB BID-RT [facility] Last Admin: 05/09/20 07:56 Dose: 0.25 mg Buspirone HCl (Buspar) 30 mg PER TUBE BID [facility] Last Admin: 05/09/20 09:08 Dose: 30 mg Cilostazol (Pletal) 100 mg PER TUBE BID-AC [facility] Last Admin: 05/09/20 09:03 Dose: 100 mg Clonazepam (Klonopin) 1 mg PER TUBE BID [facility] Last Admin: 05/09/20 09:08 Dose: 1 mg Enoxaparin Sodium (Lovenox) 40 mg SC 0900 GEOR[facility]TE Last Admin: 05/09/20 09:04 Dose: 40 mg Escitalopram Oxalate (Lexapro) 20 mg PER TUBE QAM [facility] Last Admin: 05/09/20 09:04 Dose: 20 mg Gabapentin (Neurontin) 600 mg PO BID [facility] Last Admin: 05/09/20 09:04 Dose: 600 mg Cefepime HCl 2 gm/ Sodium (Chloride) 100 mls @ 200 mls/hr IVPB 0100,0900,1700 [facility] Last Admin: 05/09/20 09:08 Dose: 100 mls Azithromycin 500 mg/ Sodium (Chloride) 250 mls @ 250 mls/hr IVPB Q24HR [facility] Last Admin: 05/09/20 05:18 Dose: 250 mls Fentanyl Citrate 2,000 mcg/ (Sodium Chloride) 100 mls @ 0 mls/hr IV INF [facility]; Protocol Stop: 06/06/20 06:37 Last Admin: 05/08/20 23:17 Dose: 100 mls Fentanyl Citrate (Fentanyl Bolus) 250 mls @ 0 mls/hr IVPB PRN PRN PRN Reason: Breakthrough pain/agitation Stop: 06/06/20 06:37 Lorazepam (Ativan) 2 mg SLOW IVP Q1H PRN PRN Reason: Breakthrough agitation Stop: 06/06/20 06:37 Last Admin: 05/08/20 20:09 Dose: 2 mg Methylprednisolone Sodium Succinate (Solu-Medrol) 40 mg IVP Q6HR [facility] Last Admin: 05/09/20 05:18 Dose: 40 mg Morphine Sulfate (Morphine) 2 mg SLOW IVP Q1H PRN PRN Reason: Breakthrough Pain/Agitation Stop: 06/06/20 06:37 Last Admin: 05/07/20 07:51 Dose: 2 mg Pantoprazole Sodium (Protonix) 40 mg IVP DAILY [facility] Last Admin: 05/09/20 09:04 Dose: 40 mg Propofol (Diprivan) 1,000 mg IV INF PRN; Protocol PRN Reason: TO ACHIEVE GOAL RASS Stop: 06/06/20 06:37 Last Admin: 05/09/20 03:55 Dose: 1,000 mg Propofol (Diprivan Bolus) 20 mg IV Q5MIN PRN PRN Reason: BREAKTHROUGH AGITATION Stop: 06/06/20 06:37 Sodium Bicarbonate (Bicarbonate, Sodium) 650 mg PER TUBE .PER PROTOCOL PRN PRN Reason: ENTERAL TUBE OCCLUSION Vecuronium [place] (Norcuron) 10 mg IVP Q30MIN PRN PRN Reason: Agitation Vital Signs & Weight: Vital Signs Pulse Resp BP Pulse Ox 05/09/20 08:00 17 97 05/09/20 07:53 94 05/09/20 06:00 24 H 05/09/20 04:00 20 05/09/20 02:27 91 24 H 117/40 L 96 05/09/20 02:00 21 H 05/09/20 00:00 21 H 05/08/20 22:31 97 22 H 125/42 L 96 Admit Weight 200 lb Weight 200 lb 9.93 oz - Physical Exam Cardiac: regular rate and rhythm, S1/S2 Lungs: decreased breath sounds Extremities: other: (mild generalized edema) - Labs Result Diagrams: 05/08/20 04:04 05/08/20 04:04 Troponin/CKMB CK-MB (CK-2) 8.9 ng/mL (0-6.6) H* 05/07/20 00:06 Troponin I 1.744 ng/mL (< 0.028) H* 05/07/20 06:37 - Telemetry Sinus rhythms and dysrhythmias: sinus rhythm - Assessment/Plan Assessment/Plan: 1. Acute respiratory failure 2/2 COPD exac - On vent with sedation; Lasix 40mg x 1 given this AM; managed by pulmonology service 2. NSTEMI possible 2/2 demand ischemia due to severe COPD exc - Stress test in [address] Soto' office showed no ischemia; 3. HTN - stable 4. PVD with hx of AFRO in 08/2018 - per the pt's , the pt was told to hold any procedures/surgeries. 5. HLD - 6. Anxiety 7. Hx of TIA in 2007 8. Ex-smoker MAR reviewed * Echo on 05/08/2020 with EF 60-65%, grade I dd, mild LVH, mild LAE, mild MR and TR
--- NOTE | 2020-05-09 13:23 | PDOC.HOSPP ---
- Subjective Encounter Date: 05/09/20 Encounter Time: 08:45 Subjective: is on vent and sedated - Objective Vital Signs & Weight: Vital Signs (12 hours) Temp Pulse Resp BP Pulse Ox 05/09/20 13:07 101 H 05/09/20 12:00 97.7 F 12 05/09/20 10:53 80 05/09/20 10:00 16 05/09/20 08:00 17 97 05/09/20 07:53 94 05/09/20 06:00 24 H 05/09/20 04:00 20 05/09/20 02:27 91 24 H 117/40 L 96 05/09/20 02:00 21 H Weight Admit Weight 200 lb Weight 200 lb 9.93 oz Most Recent Monitor Data Heart Rate from ECG 88 NIBP 119/44 NIBP BP-Mean 62 Respiration from ECG 13 SpO2 96 I&O: 05/08/20 05/09/20 05/10/20 06:59 06:59 06:59 Intake Total 3549.9 2758.2 60 Output Total 973 894 5071 Balance 2940.9 1955.2 -1375 Result Diagrams: 05/08/20 04:04 05/08/20 04:04 Hospitalist ROS - Medication Medications: Active Medications Generic Name Dose Route Start Last Admin Trade Name Freq PRN Reason Stop Dose Admin Albuterol/Ipratropium 3 ml 05/07/20 10:30 05/09/20 10:53 Duoneb NEB 3 ml [id number] GEORGETTE Administration Arformoterol Tartrate 15 mcg 05/07/20 18:30 05/09/20 07:56 Brovana NEB 15 mcg BID-RT [facility]TE Administration Aspirin 81 mg 05/07/20 09:00 05/09/20 09:03 Aspirin Chewable PER TUBE 81 mg DAILY [facility] Administration Budesonide 0.25 mg 05/07/20 18:30 05/09/20 07:56 Pulmicort Neb Solution NEB 0.25 mg BID-RT GE[facility]TE Administration Buspirone HCl 30 mg 05/07/20 09:00 05/09/20 09:08 Buspar PER TUBE 30 mg BID GE[facility]TE Administration Cilostazol 100 mg 05/07/20 16:30 05/09/20 09:03 Pletal PER TUBE 100 mg BID-AC [facility] Administration Clonazepam 1 mg 05/07/20 09:00 05/09/20 09:08 Klonopin PER TUBE 1 mg BID GE[facility]TE Administration Enoxaparin Sodium 40 mg 05/07/20 09:00 05/09/20 09:04 Lovenox SC 40 mg 0900 GEORGETTE Administration Escitalopram Oxalate 20 mg 05/07/20 09:00 05/09/20 09:04 Lexapro PER TUBE 20 mg QAM [facility]TE Administration Gabapentin 600 mg 05/07/20 09:00 05/09/20 09:04 Neurontin PO 600 mg BID GEOR[facility]TE Administration Cefepime HCl 2 gm/ Sodium 100 mls @ 200 mls/hr 05/07/20 09:00 05/09/20 09:08 Chloride IVPB 100 mls 0100,0900,1700 GEORGETTE Administration Azithromycin 500 mg/ Sodium 250 mls @ 250 mls/hr 05/07/20 05:00 05/09/20 05: 18 Chloride IVPB 250 mls Q24HR [facility]TE Administration Fentanyl Citrate 2,000 mcg/ 100 mls @ 0 mls/hr 05/07/20 06:37 05/08/20 23:17 Sodium Chloride IV 06/06/20 06:37 100 mls INF [facility]TE Administration Protocol Per Protocol Lorazepam 2 mg 05/07/20 06:37 05/08/20 20:09 Ativan SLOW IVP 06/06/20 06:37 2 mg Q1H PRN Administration Breakthrough agitation Methylprednisolone Sodium Succinate 40 mg 05/07/20 12:00 05/09/20 12:30 Solu-Medrol IVP 40 mg Q6HR [facility]TE Administration Morphine Sulfate 2 mg 05/07/20 06:37 05/07/20 07:51 Morphine SLOW IVP 06/06/20 06:37 2 mg Q1H PRN Administration Breakthrough Pain/Agitation Pantoprazole Sodium 40 mg 05/07/20 09:00 05/09/20 09:04 Protonix IVP 40 mg DAILY [facility] Administration Propofol 1,000 mg 05/07/20 06:37 05/09/20 10:34 Diprivan IV 06/06/20 06:37 1,000 mg INF PRN Administration TO ACHIEVE GOAL RASS Protocol - Exam Eye: PERRL, anicteric sclera ENT: no oropharyngeal lesions, dry oral mucosa Neck: supple, no JVD Heart: RRR, no murmur Respiratory: no wheezes, no rales, rhonchi Gastrointestinal: soft, non-tender, non-distended, normal bowel sounds Extremities: no cyanosis, no edema Neurological: cranial nerve grossly intact, no focal deficits Hosp A/P (1) Acute respiratory failure with hypoxia Code(s): J96.01 - ACUTE RESPIRATORY FAILURE WITH HYPOXIA Status: Acute (2) COPD exacerbation Code(s): J44.1 - CHRONIC OBSTRUCTIVE PULMONARY DISEASE W (ACUTE) EXACERBATION Status: Acute (3) NSTEMI (non-ST elevated myocardial infarction) Code(s): I21.4 - NON-ST ELEVATION (NSTEMI) MYOCARDIAL INFARCTION Status: Acute (4) Anxiety disorder Code(s): F41.9 - ANXIETY DISORDER, UNSPECIFIED Status: Chronic Qualifiers: Anxiety disorder type: generalized anxiety disorder Qualified Code(s): F41.1 - Generalized anxiety disorder (5) HTN (hypertension) Code(s): I10 - ESSENTIAL (PRIMARY) HYPERTENSION Status: Chronic Qualifiers: Hypertension type: essential hypertension Qualified Code(s): I10 - Essential (primary) hypertension (6) PVD (peripheral vascular disease) Code(s): I73.9 - PERIPHERAL VASCULAR DISEASE, UNSPECIFIED Status: Chronic (7) Dyslipidemia Code(s): E78.5 - HYPERLIPIDEMIA, UNSPECIFIED Status: Chronic - Plan got intubated for progressive sob and anxiety on admission is on buspar, lexapro, klonopin for mood disorder/anxiety continue steroids, duonebs, brovana and pulmicort nebs, aspirin, pletal, gabapentin, zithromax and cefepime hemostable weaning per pulm advice, expected extuabation in am if she does well today
[2020-05-10] MEDS: Cefepime 2 GM in Sodium Chloride 0.9% 100 ML IVPB SCH ×3 (00:22→17:16)
[2020-05-10] MEDS: methylPREDNISolone Sod Succ 40 MG VIAL IVP SCH ×4 (00:23→17:16)
[2020-05-10 04:19] LABS: Anion Gap 12 mmol/L (10-20); BUN (Urea Nitrogen) 48 mg/dL (9.8-20.1); Calc. Creatinine Clearance 67 mL/min (70-130); Carbon Dioxide 26 mmol/L (23-31); Chloride 102 mmol/L (98-107); Estimated GFR-MDRD 56; Glucose 155 mg/dL (83-110); Potassium 4.1 mmol/L (3.5-5.1); Sodium 136 mmol/L (136-145)
[2020-05-10 04:24] LABS: Band 7 % (5-11); Lymphocytes 13 % (21-51); MDiff Complete? YES; Mean Corpuscular HGB CONC 34.3 g/dL (32.0-36.0); Mean Corpuscular Hemoglobin 33.8 pg (27.0-31.0); Mean Corpuscular Volume 98.6 fL (78.0-98.0); Mean Platelet Volume 10.9 fL (7.4-10.4); Monocytes 4 % (0-10); Neutrophil 76 % (42-75); Nucleated RBC 1 % (0); Platelet Count 146 thou/uL (130-400); Platelet Morphology Comment Appears Adequate; RBC Distribution Width 13.2 % (11.5-14.5); Red Blood Cell (RBC) Count 2.97 mill/uL (4.20-5.40); White Blood Cell (WBC) Count 15.3 thou/uL (4.8-10.8)
[2020-05-10] MEDS: Azithromycin 500 MG in Sodium Chloride 0.9% 250 ML 250 ML IVPB SCH (04:25)
[2020-05-10] MEDS: Propofol 1,000 MG/100 ML VIAL IV PRN ×3 (04:25→17:53)
[2020-05-10 06:57] LABS: Actual Bicarbonate (HCO3a) 26.3 mEq/L (22-28); Base Excess (BEa) 0.3 mEq/L (-2.0 to +3.0); CO2 Tension 48.7 mmHg (35.0-45.0); Calcium, Ionized (arterial) 1.12 mmol/L (1.12-1.30); Carboxyhemoglobin (COHb) 0.3 gm% (0.0-3.0); Hemoglobin (Hb) 10.9 g/dL (12.0-16.0); O2 Tension (PaO2), arterial 66.2 mmHg (> 60.0); Potassium - ABG Lab 4.02 mmol/L (3.70-5.30); pH, Arterial 7.35 (7.35-7.45)
[2020-05-10] MEDS: Budesonide 0.25 MG/2 ML NEB NEB SCH ×2 (06:58→18:43)
[2020-05-10 07:00] LABS: Puncture Site LRA
[2020-05-10 07:01] LABS: ALV-art Gradient 86.825 (0-20)
[2020-05-10] MEDS: Arformoterol 15 MCG/2 ML NEB NEB SCH ×2 (07:01→18:42)
--- NOTE | 2020-05-10 07:05 | RAD ---
CHEST 1 VIEW: Date: 05/10/2020 INDICATION: History of pneumonia. COMPARISON: Prior exam dated 05/09/2020. IMPRESSION: Examination is not appreciably changed from the comparison examination. Tubes and lines are stable. N o pneumothorax is evident. POS: [facility]
[2020-05-10] MEDS ORDERED: DC Sedation Protocol FS ONE (07:50)
--- NOTE | 2020-05-10 08:12 | PRG ---
DATE OF SERVICE: 05/10/2020 TIME SPENT: This is 35 minutes of critical care time. SUBJECTIVE: The patient remains intubated on mechanical ventilation. OBJECTIVE: VITAL SIGNS: On exam, temperature 97.9, pulse 120 radiating down into the 80s, and blood pressure 154/73. Total intake 1931, output 2730. HEENT: Unremarkable. NECK: No adenopathy or JVD. CHEST: Clear anteriorly. CARDIOVASCULAR: S1 and S2. Regular. ABDOMEN: Soft. EXTREMITIES: No edema. LABORATORY DATA: White blood cell count 15, hematocrit 29.3, and platelet count 146. PH of 7.35, pCO2 of 48, and pO2 of 66. Sodium 136, potassium 4.1, chloride 102, CO2 of 26, BUN 48, creatinine 0.9, and glucose 155. IMAGING DATA: X-ray is fairly clear. ASSESSMENT: 1. Chronic obstructive pulmonary disease with exacerbation. 2. Acute hypoxic and hypercapnic respiratory failure, requiring mechanical ventilation. 3. Anxiety. PLAN: She passed spontaneous breathing trial. We will go ahead and extubate. Continue to monitor in ICU for another 24 hours. Job ID: [id number]
[2020-05-10] MEDS ORDERED: Ventilator Sedation Protocol 1 EACH FS ONE (08:21)
[2020-05-10] MEDS ORDERED: Fentanyl BOLUS 250 ML IVPB PRN (08:23)
[2020-05-10] MEDS ORDERED: DISCONTINUE PREVIOUS NARCOTIC PAIN MEDICATIONS AND BENZODIAZEPINES FS SCH (08:23)
[2020-05-10] MEDS ORDERED: Propofol BOLUS 1,000 MG/100 ML VIAL IV PRN (08:23)
[2020-05-10] MEDS: Pantoprazole 40 MG VIAL IVP SCH (08:39)
[2020-05-10] MEDS: busPIRone HCl 10 MG TAB PER TUBE SCH ×2 (08:39→21:36)
[2020-05-10] MEDS: Gabapentin 300 MG CAP PO SCH ×2 (08:39→21:36)
[2020-05-10] MEDS: Aspirin Chewable 81 MG TAB PER TUBE SCH (08:39)
[2020-05-10] MEDS: Enoxaparin Sodium 40 MG/0.4 ML SYRINGE SC SCH (08:39)
[2020-05-10] MEDS: Cilostazol 100 MG TAB PER TUBE SCH ×2 (08:40→16:05)
[2020-05-10] MEDS: Escitalopram Oxalate 20 mg Tablet PER TUBE SCH (08:40)
--- NOTE | 2020-05-10 12:38 | PDOC.HOSPP ---
- Subjective Encounter Date: 05/10/20 Encounter Time: 10:45 Subjective: on vent, sedated will be having a spontaneous breathing trial shortly on precedex drip - Objective Vital Signs & Weight: Vital Signs (12 hours) Temp Pulse Resp BP Pulse Ox 05/10/20 12:00 97.8 F 6 L 05/10/20 11:00 96 05/10/20 10:00 6 L 05/10/20 08:00 97.9 F 8 L 97 05/10/20 07:01 120 H 05/10/20 06:00 8 L 05/10/20 04:00 97.9 F 8 L 05/10/20 02:32 89 131/41 L 05/10/20 02:31 89 13 97 05/10/20 02:00 8 L Weight Admit Weight 200 lb Weight 199 lb 8.293 oz Most Recent Monitor Data Heart Rate from ECG 86 NIBP 132/49 NIBP BP-Mean 54 Respiration from ECG 6 SpO2 96 I&O: 05/09/20 05/10/20 05/11/20 06:59 06:59 06:59 Intake Total 2758.2 1931 80 Output Total 803 2730 580 Balance 1955.2 -799 -500 Result Diagrams: 05/10/20 03:30 05/10/20 03:30 Hospitalist ROS - Medication Medications: Active Medications Generic Name Dose Route Start Last Admin Trade Name Freq PRN Reason Stop Dose Admin Albuterol/Ipratropium 3 ml 05/07/20 10:30 05/10/20 10:59 Duoneb NEB 3 ml [id number] GEORGETTE Administration Arformoterol Tartrate 15 mcg 05/07/20 18:30 05/10/20 07:01 Brovana NEB 15 mcg BID-RT [facility] Administration Aspirin 81 mg 05/07/20 09:00 05/10/20 08:39 Aspirin Chewable PER TUBE 81 mg DAILY [facility] Administration Budesonide 0.25 mg 05/07/20 18:30 05/10/20 06:58 Pulmicort Neb Solution NEB 0.25 mg BID-RT [facility]TE Administration Buspirone HCl 30 mg 05/07/20 09:00 05/10/20 08:39 Buspar PER TUBE 30 mg BID [facility]TE Administration Cilostazol 100 mg 05/07/20 16:30 08/25/20 08:40 Pletal PER TUBE 100 mg BID-AC [facility]TE Administration Enoxaparin Sodium 40 mg 05/07/20 09:00 05/10/20 08:39 Lovenox SC 40 mg 0900 GEORGETTE Administration Escitalopram Oxalate 20 mg 05/07/20 09:00 05/10/20 08:40 Lexapro PER TUBE 20 mg QAM [facility] Administration Gabapentin 600 mg 05/07/20 09:00 05/10/20 08:39 Neurontin PO 600 mg BID [facility]TE Administration Cefepime HCl 2 gm/ Sodium 100 mls @ 200 mls/hr 05/07/20 09:00 05/10/20 08:40 Chloride IVPB 100 mls 0100,0900,1700 GEORGETTE Administration Azithromycin 500 mg/ Sodium 250 mls @ 250 mls/hr 05/07/20 05:00 05/10/20 04: 25 Chloride IVPB 250 mls Q24HR [facility]ORGETTE Administration Dexmedetomidine HCl 400 mcg/ 100 mls @ 0 mls/hr 05/10/20 08:30 05/10/20 08:59 Sodium Chloride IVPB 100 mls INF [facility]TE Administration Protocol Per Protocol Methylprednisolone Sodium Succinate 40 mg 05/07/20 12:00 05/10/20 11:46 Solu-Medrol IVP 40 mg Q6HR [facility] Administration Pantoprazole Sodium 40 mg 05/07/20 09:00 05/10/20 08:39 Protonix IVP 40 mg DAILY [facility] Administration Propofol 1,000 mg 05/10/20 08:23 05/10/20 08:58 Diprivan IV 06/09/20 08:23 1,000 mg INF PRN Administration TO ACHIEVE GOAL RASS Protocol - Exam Eye: PERRL, anicteric sclera ENT: no oropharyngeal lesions, dry oral mucosa Neck: supple, no JVD Heart: RRR, no murmur Respiratory: no wheezes, no rales, rhonchi Gastrointestinal: soft, non-tender, non-distended, normal bowel sounds Extremities: no cyanosis, 1+ LE edema Neurological: cranial nerve grossly intact, no focal deficits Hosp A/P (1) Acute respiratory failure with hypoxia Code(s): J96.01 - ACUTE RESPIRATORY FAILURE WITH HYPOXIA Status: Acute (2) COPD exacerbation Code(s): J44.1 - CHRONIC OBSTRUCTIVE PULMONARY DISEASE W (ACUTE) EXACERBATION Status: Acute (3) NSTEMI (non-ST elevated myocardial infarction) Code(s): I21.4 - NON-ST ELEVATION (NSTEMI) MYOCARDIAL INFARCTION Status: Acute (4) Anxiety disorder Code(s): F41.9 - ANXIETY DISORDER, UNSPECIFIED Status: Chronic Qualifiers: Anxiety disorder type: generalized anxiety disorder Qualified Code(s): F41.1 - Generalized anxiety disorder (5) HTN (hypertension) Code(s): I10 - ESSENTIAL (PRIMARY) HYPERTENSION Status: Chronic Qualifiers: Hypertension type: essential hypertension Qualified Code(s): I10 - Essential (primary) hypertension (6) PVD (peripheral vascular disease) Code(s): I73.9 - PERIPHERAL VASCULAR DISEASE, UNSPECIFIED Status: Chronic (7) Dyslipidemia Code(s): E78.5 - HYPERLIPIDEMIA, UNSPECIFIED Status: Chronic - Plan got intubated for progressive sob and anxiety on admission is on buspar, lexapro, klonopin for mood disorder/anxiety continue steroids, duonebs, brovana and pulmicort nebs, aspirin, pletal, gabapentin, zithromax and cefepime hemostable weaning trial this am, if she remains stable will likely get extubated will f/u
--- NOTE | 2020-05-10 13:43 | PDOC.CPN ---
- Subjective Date: 05/10/20 Time: 08:30 Interval history: The pt seen and examined. No overnight events. Per RN, her HR went up to 160s when her vent sedation was on hold. - Objective Allergies/Adverse Reactions: Allergies Allergy/AdvReac Type Severity Reaction Status Date / Time codeine Allergy Verified 12/04/19 18:30 Sulfa (Sulfonamide Allergy Verified 12/04/19 18:30 Antibiotics) STEROIDS Allergy Uncoded 12/04/19 18:30 Visit Medications: Current Medications Albuterol/Ipratropium (Duoneb) 3 ml NEB [id number] [facility] Last Admin: 05/10/20 10:59 Dose: 3 ml Lipase/Protease/Amylase ([place] [id number]) 1 cap FS .PER PROTOCOL PRN PRN Reason: TUBE OCCLUSION PROTOCOL Arformoterol Tartrate (Brovana) 15 mcg NEB BID-RT [facility] Last Admin: 05/10/20 07:01 Dose: 15 mcg Aspirin (Aspirin Chewable) 81 mg PER TUBE DAILY [facility] Last Admin: 05/10/20 08:39 Dose: 81 mg Budesonide (Pulmicort Neb Solution) 0.25 mg NEB BID-RT [facility] Last Admin: 05/10/20 06:58 Dose: 0.25 mg Buspirone HCl (Buspar) 30 mg PER TUBE BID [facility] Last Admin: 05/10/20 08:39 Dose: 30 mg Cilostazol (Pletal) 100 mg PER TUBE BID-AC [facility] Last Admin: 05/10/20 08:40 Dose: 100 mg Enoxaparin Sodium (Lovenox) 40 mg SC 0900 [facility] Last Admin: 05/10/20 08:39 Dose: 40 mg Escitalopram Oxalate (Lexapro) 20 mg PER TUBE QAM [facility] Last Admin: 05/10/20 08:40 Dose: 20 mg Gabapentin (Neurontin) 600 mg PO BID [facility] Last Admin: 05/10/20 08:39 Dose: 600 mg Cefepime HCl 2 gm/ Sodium (Chloride) 100 mls @ 200 mls/hr IVPB 0100,0900,1700 [facility] Last Admin: 05/10/20 08:40 Dose: 100 mls Azithromycin 500 mg/ Sodium (Chloride) 250 mls @ 250 mls/hr IVPB Q24HR [facility] Last Admin: 05/10/20 04:25 Dose: 250 mls Fentanyl Citrate 2,000 mcg/ (Sodium Chloride) 100 mls @ 0 mls/hr IV INF [facility]; Protocol Stop: 06/09/20 08:23 Fentanyl Citrate (Fentanyl Bolus) 250 mls @ 0 mls/hr IVPB PRN PRN PRN Reason: Breakthrough pain/agitation Stop: 06/09/20 08:23 Dexmedetomidine HCl 400 mcg/ (Sodium Chloride) 100 mls @ 0 mls/hr IVPB INF [facility] ; Protocol Last Admin: 05/10/20 08:59 Dose: 100 mls Lorazepam (Ativan) 2 mg SLOW IVP Q1H PRN PRN Reason: Breakthrough agitation Stop: 06/09/20 08:23 Methylprednisolone Sodium Succinate (Solu-Medrol) 40 mg IVP Q6HR [facility] Last Admin: 05/10/20 11:46 Dose: 40 mg Morphine Sulfate (Morphine) 2 mg SLOW IVP Q1H PRN PRN Reason: Breakthrough Pain/Agitation Stop: 06/09/20 08:23 Discontinue Previous Narcotic Pain Medications And Benzodiazepines 1 each FS .ONE [facility] Stop: 06/09/20 08:23 Pantoprazole Sodium (Protonix) 40 mg IVP DAILY [facility] Last Admin: 05/10/20 08:39 Dose: 40 mg Propofol (Diprivan) 1,000 mg IV INF PRN; Protocol PRN Reason: TO ACHIEVE GOAL RASS Stop: 06/09/20 08:23 Last Admin: 05/10/20 08:58 Dose: 1,000 mg Propofol (Diprivan Bolus) 20 mg IV Q5MIN PRN PRN Reason: BREAKTHROUGH AGITATION Stop: 06/09/20 08:23 Sodium Bicarbonate (Bicarbonate, Sodium) 650 mg PER TUBE .PER PROTOCOL PRN PRN Reason: ENTERAL TUBE OCCLUSION Vital Signs & Weight: Vital Signs Temp Pulse Resp BP Pulse Ox 05/10/20 12:00 97.8 F 6 L 05/10/20 11:00 96 05/10/20 10:00 6 L 05/10/20 08:00 97.9 F 8 L 97 05/10/20 07:01 120 H 05/10/20 06:00 8 L 05/10/20 04:00 97.9 F 8 L 05/10/20 02:32 89 131/41 L 05/10/20 02:31 89 13 97 05/10/20 02:00 8 L Admit Weight 200 lb Weight 199 lb 8.293 oz - Physical Exam Cardiac: regular rate and rhythm, S1/S2 Lungs: decreased breath sounds Extremities: other: (mildly generalized edema) - Labs Result Diagrams: 05/11/20 05:40 05/11/20 05:40 Troponin/CKMB CK-MB (CK-2) 8.9 ng/mL (0-6.6) H* 05/07/20 00:06 Troponin I 1.744 ng/mL (< 0.028) H* 05/07/20 06:37 - Telemetry Sinus rhythms and dysrhythmias: sinus rhythm - Assessment/Plan Assessment/Plan: 1. Acute respiratory failure 2/2 COPD exac - On vent with sedation; when vent sedation was off, her HR was up to 160 today; managed by pulmonology service 2. NSTEMI possible 2/2 demand ischemia due to severe COPD exc - Stress test in [address] Soto' office showed no ischemia; 3. HTN - stable 4. PVD with hx of AFRO in 08/2018 - per the pt's , the pt was told to hold any procedures/surgeries. 5. HLD - 6. Anxiety 7. Hx of TIA in 2007 8. Ex-smoker MAR reviewed * Echo on 05/08/2020 with EF 60-65%, grade I dd, mild LVH, mild LAE, mild MR and TR Pt. seen and eval. by me. I agree with the A/P by the registered private duty nurse.Intubated. Chest clera. RRR. No edema. Cardiac status is stable. bill
[2020-05-11] MEDS: methylPREDNISolone Sod Succ 40 MG VIAL IVP SCH ×5 (00:06→23:03)
[2020-05-11] MEDS: Cefepime 2 GM in Sodium Chloride 0.9% 100 ML IVPB SCH ×3 (00:40→17:04)
[2020-05-11] MEDS: Lorazepam 2 MG/ML VIAL SLOW IVP PRN ×4 (00:40→23:36)
[2020-05-11] MEDS: Propofol 1,000 MG/100 ML VIAL IV PRN ×4 (04:27→23:40)
[2020-05-11] MEDS: Azithromycin 500 MG in Sodium Chloride 0.9% 250 ML 250 ML IVPB SCH (04:27)
[2020-05-11 06:14] LABS: #Lymphocytes 1.1 thou/uL (1.20-3.40); #Monocytes 0.5 thou/uL (0.11-0.59); #Neutrophils 10.3 thou/uL (1.40-6.50); %Basophils 0.2 % (0.0-1.0); %Eosinophils 0.2 % (0.0-10.0); %Lymphocytes 9.4 % (21.0-51.0); %Monocytes 4.4 % (0.0-10.0); %Neutrophils 85.8 % (42.0-75.0); Hemoglobin 10.7 g/dL (12.0-16.0); Mean Corpuscular HGB CONC 32.8 g/dL (32.0-36.0); Mean Platelet Volume 10.9 fL (7.4-10.4); Platelet Count 160 thou/uL (130-400); RBC Distribution Width 13.6 % (11.5-14.5); Red Blood Cell (RBC) Count 3.24 mill/uL (4.20-5.40)
[2020-05-11 06:29] LABS: Anion Gap 13 mmol/L (10-20); BUN (Urea Nitrogen) 45 mg/dL (9.8-20.1); Calc. Creatinine Clearance 81 mL/min (70-130); Calcium 8.1 mg/dL (7.8-10.44); Carbon Dioxide 22 mmol/L (23-31); Chloride 106 mmol/L (98-107); Estimated GFR-MDRD 68; Glucose 178 mg/dL (83-110); Potassium 4.2 mmol/L (3.5-5.1); Sodium 137 mmol/L (136-145)
[2020-05-11 07:33] LABS: Actual Bicarbonate (HCO3a) 29.3 mEq/L (22-28); Analyzer IN Cardio OR; Base Excess (BEa) 4.6 mEq/L (-2.0 to +3.0); CO2 Tension 44.2 mmHg (35.0-45.0); Calcium, Ionized (arterial) 1.15 mmol/L (1.12-1.30); Carboxyhemoglobin (COHb) 0.9 gm% (0.0-3.0); Hemoglobin (Hb) 10.9 g/dL (12.0-16.0); O2 Tension (PaO2), arterial 80.7 mmHg (> 60.0); Potassium - ABG Lab 4.21 mmol/L (3.70-5.30); pH, Arterial 7.44 (7.35-7.45)
[2020-05-11] MEDS ORDERED: Ziprasidone 20 MG VIAL IM PRN (07:35)
[2020-05-11 07:37] LABS: Puncture Site LRA
[2020-05-11] MEDS: Arformoterol 15 MCG/2 ML NEB NEB SCH ×2 (07:42→18:38)
[2020-05-11] MEDS: Budesonide 0.25 MG/2 ML NEB NEB SCH ×2 (07:42→18:38)
--- NOTE | 2020-05-11 07:49 | RAD ---
Portable frontal chest radiograph: 05/11/2020 COMPARISON: 05/10/2020 HISTORY: Pneumonia FINDINGS: Stable endotracheal tube and nasogastric tube. Stable pulmonary vascular prominence with in creased linear interstitial density in the perihilar regions and lung bases. Airspace disease again noted within the lung bases, right greater than left, with probable associated small bilateral pleura l effusions. IMPRESSION: Stable lines and tubes. Findings suggesting pulmonary edema. Basilar infectious pneumonit is or aspiration cannot be excluded. Follow-up advised.
--- NOTE | 2020-05-11 08:20 | PRG ---
DATE OF SERVICE: 05/11/2020 This is 35 minutes of critical care time. SUBJECTIVE: The patient is requiring a time of sedation to keep her from becoming agitated on ventilator. OBJECTIVE: VITAL SIGNS: Temperature 97.9, pulse 76, blood pressure 153/53, and O2 sat 98%. HEENT: Unremarkable. NECK: No JVD. LUNGS: Expiratory wheezing. CARDIAC: S1 and S2. Regular. ABDOMEN: Soft. EXTREMITIES: No edema. LABORATORY DATA: PH 7.44, pCO2 of 44, pO2 of 80, that is on CPAP 5, pressure support 10, and FiO2 of 40%. White blood cell count 12, hematocrit 32.5, and platelet count 160. Sodium 137, potassium 4.2, chloride 106, CO2 of 22, BUN 45, creatinine 0.8, and glucose 178. Her chest film shows bilateral bibasilar pleural effusions. ET tube is in good position. ASSESSMENT: 1. Acute hypoxic respiratory failure, requiring mechanical ventilation. 2. Chronic obstructive pulmonary disease with exacerbation. 3. Severe anxiety issues. This is a very difficult situation. The patient becomes very agitated off her sedation making transition from extubation to spontaneous breathing very difficult. My guess is she is probably fairly advanced in terms of her COPD. Her last PFT obtained in 2016 showed an FEV1 of 0.7 L, which was 38% predicted. It would be assumed that her FEV1 is probably lower than that now. That numbering itself is very borderline as far as sustaining life. PLAN: Palliative care is to meet with the family today. I would definitely advocate DNR order on this patient and perhaps extubation with comfort care. I am going to reduce her steroid dose as the steroids may be aggravating her agitation. She has elevated gastric residuals, so I will add some Reglan. Job ID: [id number]
--- NOTE | 2020-05-11 08:38 | PDOC.CPN ---
- Subjective Date: 05/11/20 Time: 08:42 Interval history: The pt seen and examined. No overnight events. Per RN, she became very agitated and HR went up to 150s when the vent sedation was wean down - Objective Allergies/Adverse Reactions: Allergies Allergy/AdvReac Type Severity Reaction Status Date / Time codeine Allergy Verified 12/04/19 18:30 Sulfa (Sulfonamide Allergy Verified 12/04/19 18:30 Antibiotics) STEROIDS Allergy Uncoded 12/04/19 18:30 Visit Medications: Current Medications Albuterol/Ipratropium (Duoneb) 3 ml NEB [id number] [facility] Last Admin: 05/11/20 07:42 Dose: 3 ml Lipase/Protease/Amylase ([place] [id number]) 1 cap FS .PER PROTOCOL PRN PRN Reason: TUBE OCCLUSION PROTOCOL Arformoterol Tartrate (Brovana) 15 mcg NEB BID-RT [facility] Last Admin: 05/11/20 07:42 Dose: 15 mcg Aspirin (Aspirin Chewable) 81 mg PER TUBE DAILY [facility] Last Admin: 05/10/20 08:39 Dose: 81 mg Budesonide (Pulmicort Neb Solution) 0.25 mg NEB BID-RT [facility] Last Admin: 05/11/20 07:42 Dose: 0.25 mg Buspirone HCl (Buspar) 30 mg PER TUBE BID [facility] Last Admin: 05/10/20 21:36 Dose: 30 mg Cilostazol (Pletal) 100 mg PER TUBE BID-AC [facility] Last Admin: 05/10/20 16:05 Dose: 100 mg Enoxaparin Sodium (Lovenox) 40 mg SC 0900 [facility] Last Admin: 05/10/20 08:39 Dose: 40 mg Escitalopram Oxalate (Lexapro) 20 mg PER TUBE QAM [facility] Last Admin: 05/10/20 08:40 Dose: 20 mg Gabapentin (Neurontin) 600 mg PO BID [facility] Last Admin: 05/10/20 21:36 Dose: 600 mg Cefepime HCl 2 gm/ Sodium (Chloride) 100 mls @ 200 mls/hr IVPB 0100,0900,1700 [facility] Last Admin: 05/11/20 00:40 Dose: 100 mls Azithromycin 500 mg/ Sodium (Chloride) 250 mls @ 250 mls/hr IVPB Q24HR [facility] Last Admin: 05/11/20 04:27 Dose: 250 mls Fentanyl Citrate 2,000 mcg/ (Sodium Chloride) 100 mls @ 0 mls/hr IV INF [facility]; Protocol Stop: 06/09/20 08:23 Fentanyl Citrate (Fentanyl Bolus) 250 mls @ 0 mls/hr IVPB PRN PRN PRN Reason: Breakthrough pain/agitation Stop: 06/09/20 08:23 Dexmedetomidine HCl 400 mcg/ (Sodium Chloride) 100 mls @ 0 mls/hr IVPB INF [facility] ; Protocol Last Admin: 05/11/20 05:44 Dose: 100 mls Lorazepam (Ativan) 2 mg SLOW IVP Q1H PRN PRN Reason: Breakthrough agitation Stop: 06/09/20 08:23 Last Admin: 05/11/20 00:40 Dose: 2 mg Methylprednisolone Sodium Succinate (Solu-Medrol) 20 mg IVP Q6HR [facility] Metoclopramide HCl (Reglan) 10 mg IVP Q6H [facility] Morphine Sulfate (Morphine) 2 mg SLOW IVP Q1H PRN PRN Reason: Breakthrough Pain/Agitation Stop: 06/09/20 08:23 Discontinue Previous Narcotic Pain Medications And Benzodiazepines 1 each FS .ONE [facility] Stop: 06/09/20 08:23 Pantoprazole Sodium (Protonix) 40 mg IVP DAILY [facility] Last Admin: 05/10/20 08:39 Dose: 40 mg Propofol (Diprivan) 1,000 mg IV INF PRN; Protocol PRN Reason: TO ACHIEVE GOAL RASS Stop: 06/09/20 08:23 Last Admin: 05/11/20 04:27 Dose: 1,000 mg Propofol (Diprivan Bolus) 20 mg IV Q5MIN PRN PRN Reason: BREAKTHROUGH AGITATION Stop: 06/09/20 08:23 Sodium Bicarbonate (Bicarbonate, Sodium) 650 mg PER TUBE .PER PROTOCOL PRN PRN Reason: ENTERAL TUBE OCCLUSION Ziprasidone (Geodon) 20 mg IM Q12HR PRN PRN Reason: Agitation Vital Signs & Weight: Vital Signs Temp Pulse Resp BP 05/11/20 07:43 89 148/50 H 05/11/20 06:00 15 05/11/20 04:00 97.9 F 16 05/11/20 02:26 77 142/53 H 05/11/20 02:00 13 05/11/20 00:22 92 132/49 L 05/11/20 00:00 97.7 F 24 H 08/25/20 22:05 85 145/49 H 05/10/20 22:00 13 Admit Weight 200 lb Weight 207 lb 14.334 oz - Physical Exam Lungs: decreased breath sounds Extremities: other: (generalized edema) - Labs Result Diagrams: 05/11/20 05:40 05/11/20 05:40 Troponin/CKMB CK-MB (CK-2) 8.9 ng/mL (0-6.6) H* 05/07/20 00:06 Troponin I 1.744 ng/mL (< 0.028) H* 05/07/20 06:37 - Telemetry Sinus rhythms and dysrhythmias: sinus rhythm - Assessment/Plan Assessment/Plan: 1. Acute respiratory failure 2/2 COPD exac - On vent with sedation; managed by pulmonology service 2. NSTEMI possible 2/2 demand ischemia due to severe COPD exc - Stress test in [address] Soto' office showed no ischemia; 3. HTN - stable 4. PVD with hx of AFRO in 08/2018 - per the pt's , the pt was told to hold any procedures/surgeries. 5. HLD - 6. Severe Anxiety 7. Hx of TIA in 2007 8. Ex-smoker MAR reviewed * Echo on 05/08/2020 with EF 60-65%, grade I dd, mild LVH, mild LAE, mild MR and TR Pt. seen and eval. by me. I agree with the A/P by the [employer] [employer]. Chest: clear. RRR. No edema. Pt. remains on the ventoilator and is anxious when the sedatives are decreased. cardiac stetus is stable. I will sign off. if any cardiac changes please consult again. jan
--- NOTE | 2020-05-11 09:05 | EKG ---
Test Reason : STAT Blood Pressure : / mmHG Vent. Rate : 125 BPM Atrial Rate : 125 BPM P-R Int : 128 ms QRS Dur : 072 ms QT Int : 322 ms P-R-T Axes : 068 051 064 degrees QTc Int : 464 ms Sinus tachycardia with Premature atrial complexes Nonspecific ST abnormality Abnormal ECG No previous ECGs available Confirmed by DR. Akhil MUHAMMAD ([id number]) on 05/11/2020 9:05:03 AM Referred By: KEVIN Confirmed By:DR. Akhil MUHAMMAD
[2020-05-11] MEDS: Gabapentin 300 MG CAP PO SCH ×2 (09:15→20:28)
[2020-05-11] MEDS: Escitalopram Oxalate 20 mg Tablet PER TUBE SCH (09:15)
[2020-05-11] MEDS: Enoxaparin Sodium 40 MG/0.4 ML SYRINGE SC SCH (09:15)
[2020-05-11] MEDS: busPIRone HCl 10 MG TAB PER TUBE SCH ×2 (09:16→20:28)
[2020-05-11] MEDS: Cilostazol 100 MG TAB PER TUBE SCH ×2 (09:16→15:58)
[2020-05-11] MEDS: Aspirin Chewable 81 MG TAB PER TUBE SCH (09:16)
[2020-05-11] MEDS: Pantoprazole 40 MG VIAL IVP SCH (09:18)
[2020-05-11] MEDS: Metoclopramide HCl 10 MG/2 ML VIAL IVP SCH ×3 (09:27→19:56)
--- NOTE | 2020-05-11 13:11 | PDOC.HOSPP ---
- Subjective Encounter Date: 05/11/20 Encounter Time: 08:40 Subjective: on vent, is sedated - Objective Vital Signs & Weight: Vital Signs (12 hours) Temp Pulse Resp BP 05/11/20 12:00 97.6 F 14 05/11/20 10:18 91 05/11/20 10:00 17 05/11/20 08:00 97.7 F 16 05/11/20 07:43 89 148/50 H 05/11/20 06:00 15 05/11/20 04:00 97.9 F 16 05/11/20 02:26 77 142/53 H 05/11/20 02:00 13 Weight Admit Weight 200 lb Weight 207 lb 14.334 oz Most Recent Monitor Data Heart Rate from ECG 82 NIBP 158/59 NIBP BP-Mean 85 Respiration from ECG 17 SpO2 98 I&O: 05/10/20 05/11/20 05/12/20 06:59 06:59 06:59 Intake Total 1931 1707.7 210 Output Total 2730 2030 455 Balance -799 -322.3 -245 Result Diagrams: 05/11/20 05:40 05/11/20 05:40 Hospitalist ROS - Medication Medications: Active Medications Generic Name Dose Route Start Last Admin Trade Name Freq PRN Reason Stop Dose Admin Albuterol/Ipratropium 3 ml 05/07/20 10:30 05/11/20 10:17 Duoneb NEB 3 ml [id number] [facility] Administration Arformoterol Tartrate 15 mcg 05/07/20 18:30 05/11/20 07:42 Brovana NEB 15 mcg BID-RT [facility] Administration Aspirin 81 mg 05/07/20 09:00 05/11/20 09:16 Aspirin Chewable PER TUBE 81 mg DAILY [facility] Administration Budesonide 0.25 mg 05/07/20 18:30 05/11/20 07:42 Pulmicort Neb Solution NEB 0.25 mg BID-RT [facility] Administration Buspirone HCl 30 mg 05/07/20 09:00 05/11/20 09:16 Buspar PER TUBE 30 mg BID [facility] Administration Cilostazol 100 mg 05/07/20 16:30 05/11/20 09:16 Pletal PER TUBE 100 mg BID-AC [facility] Administration Enoxaparin Sodium 40 mg 05/07/20 09:00 05/11/20 09:15 Lovenox SC 40 mg 0900 [facility] Administration Escitalopram Oxalate 20 mg 05/07/20 09:00 05/11/20 09:15 Lexapro PER TUBE 20 mg QAM [facility] Administration Gabapentin 600 mg 05/07/20 09:00 05/11/20 09:15 Neurontin PO 600 mg BID [facility] Administration Cefepime HCl 2 gm/ Sodium 100 mls @ 200 mls/hr 05/07/20 09:00 05/11/20 09:16 Chloride IVPB 100 mls 0100,0900,1700 [facility] Administration Azithromycin 500 mg/ Sodium 250 mls @ 250 mls/hr 05/07/20 05:00 05/11/20 04: 27 Chloride IVPB 250 mls Q24HR [facility] Administration Dexmedetomidine HCl 400 mcg/ 100 mls @ 0 mls/hr 05/10/20 08:30 05/11/20 11:33 Sodium Chloride IVPB 100 mls INF [facility] Administration Protocol Per Protocol Lorazepam 2 mg 05/10/20 08:23 05/11/20 00:40 Ativan SLOW IVP 06/09/20 08:23 2 mg Q1H PRN Administration Breakthrough agitation Methylprednisolone Sodium Succinate 20 mg 05/11/20 07:34 05/11/20 11:55 Solu-Medrol IVP 20 mg Q6HR [facility] Administration Metoclopramide HCl 10 mg 05/11/20 07:45 05/11/20 09:27 Reglan IVP 10 mg Q6H [facility] Administration Pantoprazole Sodium 40 mg 05/07/20 09:00 05/11/20 09:18 Protonix IVP 40 mg DAILY [facility] Administration Propofol 1,000 mg 05/10/20 08:23 05/11/20 11:21 Diprivan IV 06/09/20 08:23 1,000 mg INF PRN Administration TO ACHIEVE GOAL RASS Protocol - Exam General Appearance: ill appearing Eye: PERRL, anicteric sclera ENT: no oropharyngeal lesions, dry oral mucosa Neck: supple, no JVD Heart: RRR, no murmur Respiratory: no wheezes, no rales, rhonchi Gastrointestinal: soft, non-tender, non-distended, normal bowel sounds Extremities: no cyanosis, no edema Neurological: cranial nerve grossly intact, no focal deficits Hosp A/P (1) Acute respiratory failure with hypoxia Code(s): J96.01 - ACUTE RESPIRATORY FAILURE WITH HYPOXIA Status: Acute (2) COPD exacerbation Code(s): J44.1 - CHRONIC OBSTRUCTIVE PULMONARY DISEASE W (ACUTE) EXACERBATION Status: Acute (3) NSTEMI (non-ST elevated myocardial infarction) Code(s): I21.4 - NON-ST ELEVATION (NSTEMI) MYOCARDIAL INFARCTION Status: Acute (4) Anxiety disorder Code(s): F41.9 - ANXIETY DISORDER, UNSPECIFIED Status: Chronic Qualifiers: Anxiety disorder type: generalized anxiety disorder Qualified Code(s): F41.1 - Generalized anxiety disorder (5) HTN (hypertension) Code(s): I10 - ESSENTIAL (PRIMARY) HYPERTENSION Status: Chronic Qualifiers: Hypertension type: essential hypertension Qualified Code(s): I10 - Essential (primary) hypertension (6) PVD (peripheral vascular disease) Code(s): I73.9 - PERIPHERAL VASCULAR DISEASE, UNSPECIFIED Status: Chronic (7) Dyslipidemia Code(s): E78.5 - HYPERLIPIDEMIA, UNSPECIFIED Status: Chronic - Plan got intubated for progressive sob and anxiety on admission is on buspar, lexapro, klonopin for mood disorder/anxiety continue steroids, duonebs, brovana and pulmicort nebs, aspirin, pletal, gabapentin, zithromax and cefepime hemostable weaning trials as tolerated will likely meet palliative care for further discussing of care including compassionate extubation etc will f/u
[2020-05-11] MEDS: Morphine 2 MG/ML VIAL SLOW IVP PRN (23:03)
[2020-05-12] MEDS: Cefepime 2 GM in Sodium Chloride 0.9% 100 ML IVPB SCH ×3 (01:11→16:43)
[2020-05-12] MEDS: Metoclopramide HCl 10 MG/2 ML VIAL IVP SCH ×4 (01:12→20:54)
[2020-05-12] MEDS: Lorazepam 2 MG/ML VIAL SLOW IVP PRN ×3 (03:17→20:54)
[2020-05-12] MEDS: Propofol 1,000 MG/100 ML VIAL IV PRN ×4 (04:00→20:54)
[2020-05-12 04:43] LABS: Anion Gap 13 mmol/L (10-20); BUN (Urea Nitrogen) 43 mg/dL (9.8-20.1); Calc. Creatinine Clearance 81 mL/min (70-130); Calcium 7.9 mg/dL (7.8-10.44); Carbon Dioxide 23 mmol/L (23-31); Chloride 107 mmol/L (98-107); Estimated GFR-MDRD 68; Glucose 126 mg/dL (83-110); Potassium 4.7 mmol/L (3.5-5.1); Sodium 138 mmol/L (136-145)
[2020-05-12] MEDS: Azithromycin 500 MG in Sodium Chloride 0.9% 250 ML 250 ML IVPB SCH (05:05)
[2020-05-12 05:07] LABS: Band 6 % (5-11); Hemoglobin 10.9 g/dL (12.0-16.0); Lymphocytes 14 % (21-51); MDiff Complete? YES; Mean Corpuscular HGB CONC 33.2 g/dL (32.0-36.0); Mean Corpuscular Hemoglobin 33.3 pg (27.0-31.0); Mean Platelet Volume 10.7 fL (7.4-10.4); Monocytes 4 % (0-10); Neutrophil 76 % (42-75); Platelet Count 169 thou/uL (130-400); Platelet Morphology Comment Appears Adequate; RBC Distribution Width 13.8 % (11.5-14.5); Red Blood Cell (RBC) Count 3.28 mill/uL (4.20-5.40); White Blood Cell (WBC) Count 13.3 thou/uL (4.8-10.8)
[2020-05-12] MEDS: methylPREDNISolone Sod Succ 40 MG VIAL IVP SCH ×4 (05:14→23:43)
[2020-05-12] MEDS: Budesonide 0.25 MG/2 ML NEB NEB SCH ×2 (07:18→18:40)
[2020-05-12] MEDS: Arformoterol 15 MCG/2 ML NEB NEB SCH ×2 (07:19→18:40)
[2020-05-12 07:29] LABS: Actual Bicarbonate (HCO3a) 23.7 mEq/L (22-28); Base Excess (BEa) -1.1 mEq/L (-2.0 to +3.0); CO2 Tension 40.1 mmHg (35.0-45.0); Calcium, Ionized (arterial) 1.17 mmol/L (1.12-1.30); Carboxyhemoglobin (COHb) 0.3 gm% (0.0-3.0); Hemoglobin (Hb) 11.3 g/dL (12.0-16.0); O2 Tension (PaO2), arterial 94.1 mmHg (> 60.0); Potassium - ABG Lab 4.76 mmol/L (3.70-5.30); Puncture Site RRA; pH, Arterial 7.39 (7.35-7.45)
[2020-05-12 07:31] LABS: ALV-art Gradient 69.675 (0-20)
--- NOTE | 2020-05-12 07:44 | RAD ---
Portable frontal chest radiograph: 05/12/2020 COMPARISON: 05/11/2020 HISTORY: Pneumonia FINDINGS: Stable endotracheal tube and nasogastric tube. Stable nonspecific bilateral hilar prominenc e. Stable hazy interstitial and alveolar opacity with associated small bilateral pleural effusions noted in the lung bases. IMPRESSION: No significant interval change.
[2020-05-12] MEDS: fentaNYL Citrate/PF 2,000 MCG in Sodium Chloride 0.9% 60 ML IV SCH (08:09)
--- NOTE | 2020-05-12 08:28 | PRG ---
DATE OF SERVICE: 05/12/2020 TIME SPENT: 35 minutes of critical care time. SUBJECTIVE: The patient remains intubated on mechanical ventilation. She is in severe respiratory dyssynchrony today. PHYSICAL EXAMINATION: VITAL SIGNS: Temperature 97.7, pulse 85, blood pressure 144/59, and O2 saturation 98%. A 24-hour intake 2471, output 1565. HEENT: Unremarkable. NECK: No JVD. LUNGS: Expiratory wheezing. Accessory muscle use in neck and abdomen. CARDIAC: S1 and S2 regular. ABDOMEN: Soft and nontender. EXTREMITIES: No edema. LABORATORY DATA: White blood cell count 13, hematocrit 32.9, and platelet count 169. PH of 7.39, pCO2 of 40, pO2 of 94, that is on SIMV rate 8 with an inspiratory pressure of 13, pressure support of 10, PEEP 5, and FiO2 of 30%. Sodium 138, potassium 4.7, chloride 107, CO2 of 23, BUN 43, creatinine 0.8, and glucose 126. IMAGING DATA: Chest x-ray shows no significant change. ASSESSMENT: 1. Chronic obstructive pulmonary disease with acute respiratory failure requiring mechanical ventilation. 2. Severe chronic obstructive pulmonary disease on previous PFTs. 3. Severe anxiety issues. PLAN: I spoke with both the patient's and the patient's daughter yesterday. The patient's tells me that his has wanted to for the last four months. I told him that I felt she was in a situation where she would not do very well extubated because of severe respiratory muscle weakness and anxiety issues. I have communicated to him that if we do extubate, that we probably need to go the route of do not resuscitate as I think she is probably at the end of her life. Clearly, the family needed some time to think these things over. They had lots of questions about comfort medications afterwards. I believe the Palliative Care team met with him yesterday. It looks like they may be leaning toward extubation and DNAR on Saturday. In the meantime, we will continue mechanical ventilation at present settings. Continue nebulization treatments, IV cortical steroids, and antibiotics. Continue enteral tube feeds. Job ID: [id number]
[2020-05-12] MEDS: Pantoprazole 40 MG VIAL IVP SCH (08:54)
[2020-05-12] MEDS: Enoxaparin Sodium 40 MG/0.4 ML SYRINGE SC SCH (08:54)
[2020-05-12] MEDS: busPIRone HCl 10 MG TAB PER TUBE SCH ×2 (08:57→20:54)
[2020-05-12] MEDS: Escitalopram Oxalate 20 mg Tablet PER TUBE SCH (08:57)
[2020-05-12] MEDS: Aspirin Chewable 81 MG TAB PER TUBE SCH (08:57)
[2020-05-12] MEDS: Gabapentin 300 MG CAP PO SCH ×2 (08:57→20:55)
[2020-05-12] MEDS: Cilostazol 100 MG TAB PER TUBE SCH ×2 (08:58→15:44)
--- NOTE | 2020-05-12 12:40 | PDOC.HOSPP ---
- Subjective Encounter Date: 05/12/20 Encounter Time: 09:15 Subjective: is on vent, sedated - Objective Vital Signs & Weight: Vital Signs (12 hours) Temp Pulse Resp BP Pulse Ox 05/12/20 12:00 98.5 F 13 05/12/20 11:05 77 135/41 L 05/12/20 11:03 77 16 97 05/12/20 10:00 19 05/12/20 08:00 97.7 F 19 97 05/12/20 07:19 82 133/49 L 05/12/20 07:18 82 20 99 05/12/20 06:00 29 H 05/12/20 04:00 97.7 F 19 05/12/20 02:30 75 20 94 L 05/12/20 02:27 79 05/12/20 02:00 30 H Weight Admit Weight 200 lb Weight 207 lb 0.225 oz Most Recent Monitor Data Heart Rate from ECG 81 NIBP 131/49 NIBP BP-Mean 70 Respiration from ECG 11 SpO2 97 I&O: 05/11/20 05/12/20 05/13/20 06:59 06:59 06:59 Intake Total 1707.7 2471 210 Output Total 2030 1565 390 Balance -322.3 906 -180 Result Diagrams: 05/12/20 03:16 05/12/20 03:16 Hospitalist ROS - Medication Medications: Active Medications Generic Name Dose Route Start Last Admin Trade Name Freq PRN Reason Stop Dose Admin Albuterol/Ipratropium 3 ml 05/07/20 10:30 05/12/20 11:03 Duoneb NEB 3 ml [id number] GEORGETTE Administration Arformoterol Tartrate 15 mcg 05/07/20 18:30 05/12/20 07:19 Brovana NEB 15 mcg BID-RT GEORGETTE Administration Aspirin 81 mg 05/07/20 09:00 05/12/20 08:57 Aspirin Chewable PER TUBE 81 mg DAILY GEORGETTE Administration Budesonide 0.25 mg 05/07/20 18:30 05/12/20 07:18 Pulmicort Neb Solution NEB 0.25 mg BID-RT GEORGETTE Administration Buspirone HCl 30 mg 05/07/20 09:00 05/12/20 08:57 Buspar PER TUBE 30 mg BID GEORGETTE Administration Cilostazol 100 mg 05/07/20 16:30 05/12/20 08:58 Pletal PER TUBE 100 mg BID-AC GEORGETTE Administration Enoxaparin Sodium 40 mg 05/07/20 09:00 05/12/20 08:54 Lovenox SC 40 mg 0900 GEORGETTE Administration Escitalopram Oxalate 20 mg 05/07/20 09:00 05/12/20 08:57 Lexapro PER TUBE 20 mg QAM GEORGETTE Administration Gabapentin 600 mg 05/07/20 09:00 05/12/20 08:57 Neurontin PO 600 mg BID GEORGETTE Administration Cefepime HCl 2 gm/ Sodium 100 mls @ 200 mls/hr 05/07/20 09:00 05/12/20 08:54 Chloride IVPB 100 mls 0100,0900,1700 GEORGETTE Administration Azithromycin 500 mg/ Sodium 250 mls @ 250 mls/hr 05/07/20 05:00 05/12/20 05: 05 Chloride IVPB 250 mls Q24HR GEORGETTE Administration Fentanyl Citrate 2,000 mcg/ 100 mls @ 0 mls/hr 05/10/20 08:23 05/12/20 08:09 Sodium Chloride IV 06/09/20 08:23 100 mls INF GEORGETTE Administration Protocol Per Protocol Dexmedetomidine HCl 400 mcg/ 100 mls @ 0 mls/hr 05/10/20 08:30 05/11/20 23:36 Sodium Chloride IVPB 100 mls INF GEORGETTE Administration Protocol Per Protocol Lorazepam 2 mg 05/10/20 08:23 05/12/20 06:35 Ativan SLOW IVP 06/09/20 08:23 2 mg Q1H PRN Administration Breakthrough agitation Methylprednisolone Sodium Succinate 20 mg 05/11/20 07:34 05/12/20 11:50 Solu-Medrol IVP 20 mg Q6HR GEORGETTE Administration Metoclopramide HCl 10 mg 05/11/20 07:45 05/12/20 08:56 Reglan IVP 10 mg Q6H GEORGETTE Administration Morphine Sulfate 2 mg 05/10/20 08:23 05/11/20 23:03 Morphine SLOW IVP 06/09/20 08:23 2 mg Q1H PRN Administration Breakthrough Pain/Agitation Pantoprazole Sodium 40 mg 05/07/20 09:00 05/12/20 08:54 Protonix IVP 40 mg DAILY GEORGETTE Administration Propofol 1,000 mg 05/10/20 08:23 05/12/20 09:57 Diprivan IV 06/09/20 08:23 1,000 mg INF PRN Administration TO ACHIEVE GOAL RASS Protocol Sodium Chloride 10 ml 05/11/20 21:00 05/12/20 08:59 Flush - Normal Saline IVF 10 ml Q12HR GEORGETTE Administration - Exam General Appearance: ill appearing Eye: anicteric sclera ENT: no oropharyngeal lesions, dry oral mucosa Neck: supple, no JVD Heart: RRR, no murmur Respiratory: no wheezes, no rales, rhonchi Gastrointestinal: soft, non-tender, non-distended, normal bowel sounds Extremities: no cyanosis, 1+ LE edema Neurological: cranial nerve grossly intact, no focal deficits Hosp A/P (1) Acute respiratory failure with hypoxia Code(s): J96.01 - ACUTE RESPIRATORY FAILURE WITH HYPOXIA Status: Acute (2) COPD exacerbation Code(s): J44.1 - CHRONIC OBSTRUCTIVE PULMONARY DISEASE W (ACUTE) EXACERBATION Status: Acute (3) NSTEMI (non-ST elevated myocardial infarction) Code(s): I21.4 - NON-ST ELEVATION (NSTEMI) MYOCARDIAL INFARCTION Status: Acute (4) Anxiety disorder Code(s): F41.9 - ANXIETY DISORDER, UNSPECIFIED Status: Chronic Qualifiers: Anxiety disorder type: generalized anxiety disorder Qualified Code(s): F41.1 - Generalized anxiety disorder (5) HTN (hypertension) Code(s): I10 - ESSENTIAL (PRIMARY) HYPERTENSION Status: Chronic Qualifiers: Hypertension type: essential hypertension Qualified Code(s): I10 - Essential (primary) hypertension (6) PVD (peripheral vascular disease) Code(s): I73.9 - PERIPHERAL VASCULAR DISEASE, UNSPECIFIED Status: Chronic (7) Dyslipidemia Code(s): E78.5 - HYPERLIPIDEMIA, UNSPECIFIED Status: Chronic - Plan got intubated for progressive sob and anxiety on admission is on buspar, lexapro, klonopin for mood disorder/anxiety continue steroids, duonebs, brovana and pulmicort nebs, aspirin, pletal, gabapentin, zithromax and cefepime nstemi is type 2 due to demand ischemia from copd exac hemostable patient is not tolerating weaning trials and family are for compassionate extubation on saturday per staff will f/u
--- NOTE | 2020-05-12 15:06 | PDOC.FMACP ---
Advance Care Planning - Problem (1) Palliative care encounter Status: Acute Code(s): Z51.5 - ENCOUNTER FOR PALLIATIVE CARE (2) Acute respiratory failure with hypoxia Status: Acute Code(s): J96.01 - ACUTE RESPIRATORY FAILURE WITH HYPOXIA (3) COPD exacerbation Status: Acute Code(s): J44.1 - CHRONIC OBSTRUCTIVE PULMONARY DISEASE W (ACUTE ) EXACERBATION (4) NSTEMI (non-ST elevated myocardial infarction) Status: Acute Code(s): I21.4 - NON-ST ELEVATION (NSTEMI) MYOCARDIAL INFARCTION - Note Participants: family, palliative care Summary: Palliative Care revisited Advanced Care Planning opportunity to decline. The diagnosis, prognosis and goals of care were discussed. Appropriate forms and documentation to accomplish the goals of care were discussed. All questions were answered. and daughter are electing to transition to DNAR, are electing to withdraw care Saturday, seeking comfort measures. Please also refer to Palliative Care notes in note section Time Spent (mins): 20
--- NOTE | 2020-05-12 15:39 | PDOC.PALCO ---
Palliative Care Consult - Consult Details Requesting Physician: Reason for Consult: advance directives assistance, assistance with communication prognosis/disease, family support Family Members Present: Patient and daughter - Pertinent HPI 79 year old female with a know history of COPD and recent exacerbation in November 2019. Since November admission has had continued respiratory decline and dyspnea with exertion. Secondary to continued decline and shortness of breath paired with decrease in activity Mrs Leger brought her to the emergency room for evaluation and subsequent admission for medical management of COPD exacerbation. Admitted to IMCU but secondary to continued respiratory distress she was intubated and transferred to CCU for higher level of care - Pertinent PMH COPD, Anxiety, O2 dependent, HDL - Social History Smoking Status: Former smoker Smoking: quit greater than 1 year Alcohol Use: none Drug Use History: none Living Situation: - Medications MAR Reviewed: Yes - Allergies Allergies/Adverse Reactions: Allergies Allergy/AdvReac Type Severity Reaction Status Date / Time codeine Allergy Verified 12/04/19 18:30 Sulfa (Sulfonamide Allergy Verified 12/04/19 18:30 Antibiotics) STEROIDS Allergy Uncoded 12/04/19 18:30 - Subjective Intubated with mechanical ventilation, sedated - ROS Non Response: due to endotracheal tube, due to mental status - Objective Vital Signs: Vital Signs - Most Recent Temp Pulse Resp BP Pulse Ox 98.5 F 106 H 16 162/52 H 96 05/12/20 12:00 05/12/20 15:30 05/12/20 15:23 05/12/20 15:30 05/12/20 15:23 Palliative Performance Scale: 20 - Physical Exam Constitutional: encephalitic, ill appearing HEENT: moist MMs Respiratory: no rhonchi, no wheezing Deviation from normal: mechanical ventilation Cardiovascular: RRR Gastrointestinal: soft, non-tender Genitourinary: polanco catheter Musculoskeletal: edema present Skin: cap refill <2 seconds Deviation from normal: sedated - Problem List (1) Palliative care encounter Code(s): Z51.5 - ENCOUNTER FOR PALLIATIVE CARE Current Visit: Yes Status: Acute (2) Acute respiratory failure with hypoxia Code(s): J96.01 - ACUTE RESPIRATORY FAILURE WITH HYPOXIA Current Visit: Yes Status: Acute (3) COPD exacerbation Code(s): J44.1 - CHRONIC OBSTRUCTIVE PULMONARY DISEASE W (ACUTE) EXACERBATION Current Visit: Yes Status: Acute (4) NSTEMI (non-ST elevated myocardial infarction) Code(s): I21.4 - NON-ST ELEVATION (NSTEMI) MYOCARDIAL INFARCTION Current Visit : Yes Status: Acute - Plan/Recommendations Plan:Short life review with and daughter. Multiple grandchildren and great grandchildren Understanding of COPD and progressive disease trajectory, and poor prognosis. Family is electing to withdraw care Saturday secondary to getting family members here and avoiding birthdays. Spiritual care involved. Emotional support and theraputic listening. Family with strong support system [55] minutes spent on this encounter with >50% of the time in counseling and coordination of care. Thank you for this very appropriate consult.
[2020-05-13] MEDS: Cefepime 2 GM in Sodium Chloride 0.9% 100 ML IVPB SCH ×3 (01:52→17:47)
[2020-05-13] MEDS: Metoclopramide HCl 10 MG/2 ML VIAL IVP SCH ×4 (02:01→19:27)
[2020-05-13] MEDS: Propofol 1,000 MG/100 ML VIAL IV PRN ×4 (02:55→17:47)
[2020-05-13] MEDS: fentaNYL Citrate/PF 2,000 MCG in Sodium Chloride 0.9% 60 ML IV SCH ×2 (02:55→23:10)
[2020-05-13 04:31] LABS: Anion Gap 10 mmol/L (10-20); BUN (Urea Nitrogen) 49 mg/dL (9.8-20.1); Calc. Creatinine Clearance 74 mL/min (70-130); Calcium 7.9 mg/dL (7.8-10.44); Carbon Dioxide 25 mmol/L (23-31); Chloride 107 mmol/L (98-107); Estimated GFR-MDRD 62; Glucose 110 mg/dL (83-110); Potassium 5.4 mmol/L (3.5-5.1); Sodium 137 mmol/L (136-145)
[2020-05-13] MEDS: methylPREDNISolone Sod Succ 40 MG VIAL IVP SCH ×4 (05:18→23:20)
[2020-05-13] MEDS: Azithromycin 500 MG in Sodium Chloride 0.9% 250 ML 250 ML IVPB SCH (05:18)
[2020-05-13 05:25] LABS: Band 6 % (5-11); Hemoglobin 9.9 g/dL (12.0-16.0); Lymphocytes 12 % (21-51); MDiff Complete? YES; Mean Corpuscular Hemoglobin 32.7 pg (27.0-31.0); Mean Platelet Volume 10.4 fL (7.4-10.4); Monocytes 12 % (0-10); Neutrophil 70 % (42-75); Platelet Count 153 thou/uL (130-400); RBC Distribution Width 13.7 % (11.5-14.5); Red Blood Cell (RBC) Count 3.02 mill/uL (4.20-5.40); White Blood Cell (WBC) Count 16.5 thou/uL (4.8-10.8)
[2020-05-13] MEDS: Budesonide 0.25 MG/2 ML NEB NEB SCH ×2 (06:47→18:29)
[2020-05-13] MEDS: Arformoterol 15 MCG/2 ML NEB NEB SCH ×2 (06:47→18:28)
[2020-05-13 06:55] LABS: Actual Bicarbonate (HCO3a) 25.9 mEq/L (22-28); Base Excess (BEa) 0.7 mEq/L (-2.0 to +3.0); CO2 Tension 44.2 mmHg (35.0-45.0); Calcium, Ionized (arterial) 1.12 mmol/L (1.12-1.30); Carboxyhemoglobin (COHb) 0.3 gm% (0.0-3.0); Hemoglobin (Hb) 10.8 g/dL (12.0-16.0); O2 Tension (PaO2), arterial 71.1 mmHg (> 60.0); Potassium - ABG Lab 5.17 mmol/L (3.70-5.30); pH, Arterial 7.39 (7.35-7.45)
[2020-05-13 07:17] LABS: Puncture Site RA
--- NOTE | 2020-05-13 07:54 | PRG ---
DATE OF SERVICE: 05/13/2020 TIME SPENT: 35 minutes of critical care time. SUBJECTIVE: The patient remains intubated on mechanical ventilation. Has had no acute changes overnight. I did attempt to wean her yesterday, but she became very tachypneic and agitated. PHYSICAL EXAMINATION: VITAL SIGNS: Temperature 98.3, pulse 93, blood pressure 121/43, O2 saturation 95%. 24-hour intake 2246, output 1700. Weight 207 pounds. HEENT: Unremarkable. NECK: No adenopathy or JVD. LUNGS: Coarse breath sounds. CARDIAC: S1, S2. Regular. ABDOMEN: Soft. EXTREMITIES: No edema. LABORATORY DATA: White blood cell count 16, hematocrit 30, and platelet count 153; pH 7.39, pCO2 of 44, pO2 of 71 on SIMV rate 8, tidal volume 400, PEEP 5, pressure support 12, FiO2 of 40%. Sodium 137, potassium 5.4, chloride 107, CO2 of 25, BUN 49, creatinine 0.8, and glucose 110. ASSESSMENT: 1. Acute hypoxic respiratory failure requiring mechanical ventilation. 2. Chronic obstructive pulmonary disease. 3. Azotemia. 4. Severe anxiety issues. PLAN: On a basic situation where the patient cannot tolerate extubation because sedation cannot be lowered to the point where she is not agitated, tachypneic, and in respiratory distress. I had a long discussion with the patient's son. Apparently, she did not want to be kept alive on artificial support. She has been stating that she wanted to for quite some time. My understanding is that family is going to withdraw care on Saturday. In the meantime, we can continue current treatment in hopes that maybe she would have a chance of extubating successfully. I will go ahead and stop the daily chest x-ray and the daily ABG, since neither is contributing to the current care. Job ID: [id number]
[2020-05-13] MEDS: Pantoprazole 40 MG VIAL IVP SCH (09:08)
[2020-05-13] MEDS: Escitalopram Oxalate 20 mg Tablet PER TUBE SCH (09:08)
[2020-05-13] MEDS: Aspirin Chewable 81 MG TAB PER TUBE SCH (09:08)
[2020-05-13] MEDS: Cilostazol 100 MG TAB PER TUBE SCH ×2 (09:08→17:44)
[2020-05-13] MEDS: Gabapentin 300 MG CAP PO SCH ×2 (09:09→21:21)
[2020-05-13] MEDS: Enoxaparin Sodium 40 MG/0.4 ML SYRINGE SC SCH (09:09)
[2020-05-13] MEDS: busPIRone HCl 10 MG TAB PER TUBE SCH ×2 (09:14→21:21)
--- NOTE | 2020-05-13 09:48 | RAD ---
CHEST 1 VIEW: INDICATION: History of pneumonia. COMPARISON: Prior exam dated 05/12/2020. FINDINGS: There is worsening airspace disease of the right lung. There are bilateral pleural effusions. Airsp zion disease of the left lower lobe persists. ET tube and gastric catheter appear unchanged. No pneu mothorax is grossly evident. IMPRESSION: Worsening pneumonia. POS: BH
--- NOTE | 2020-05-13 13:22 | PDOC.HOSPP ---
- Subjective Encounter Date: 05/13/20 Encounter Time: 12:00 Subjective: is waking up on precedex drip, on vent - Objective Vital Signs & Weight: Vital Signs (12 hours) Temp Pulse Resp BP Pulse Ox 05/13/20 12:00 101.0 F H 12 05/13/20 11:08 92 131/39 L 05/13/20 11:07 89 13 96 05/13/20 10:00 14 05/13/20 08:00 99.6 F 16 95 05/13/20 06:48 102 H 129/49 L 05/13/20 06:46 111 H 26 H 95 05/13/20 06:00 28 H 05/13/20 04:00 98.3 F 12 05/13/20 02:29 93 05/13/20 02:28 97 14 95 05/13/20 02:00 14 Weight Admit Weight 200 lb Weight 207 lb 0.225 oz Most Recent Monitor Data Heart Rate from ECG 97 NIBP 136/45 NIBP BP-Mean 68 Respiration from ECG 16 SpO2 95 I&O: 05/12/20 05/13/20 05/14/20 06:59 06:59 06:59 Intake Total 2471 2246.0 200 Output Total 1565 1700 535 Balance 906 546.0 -335 Result Diagrams: 05/13/20 03:54 05/13/20 03:54 Hospitalist ROS - Medication Medications: Active Medications Generic Name Dose Route Start Last Admin Trade Name Freq PRN Reason Stop Dose Admin Albuterol/Ipratropium 3 ml 05/07/20 10:30 05/13/20 11:07 Duoneb NEB 3 ml [id number] GEORGETTE Administration Arformoterol Tartrate 15 mcg 05/07/20 18:30 05/13/20 06:47 Brovana NEB 15 mcg BID-RT GEORGETTE Administration Aspirin 81 mg 05/07/20 09:00 05/13/20 09:08 Aspirin Chewable PER TUBE 81 mg DAILY GEORGETTE Administration Budesonide 0.25 mg 05/07/20 18:30 05/13/20 06:47 Pulmicort Neb Solution NEB 0.25 mg BID-RT GEORGETTE Administration Buspirone HCl 30 mg 05/07/20 09:00 05/13/20 09:14 Buspar PER TUBE 30 mg BID GEORGETTE Administration Cilostazol 100 mg 05/07/20 16:30 05/13/20 09:08 Pletal PER TUBE 100 mg BID-AC GEORGETTE Administration Enoxaparin Sodium 40 mg 05/07/20 09:00 05/13/20 09:09 Lovenox SC 40 mg 0900 GEORGETTE Administration Escitalopram Oxalate 20 mg 05/07/20 09:00 05/13/20 09:08 Lexapro PER TUBE 20 mg QAM GEORGETTE Administration Gabapentin 600 mg 05/07/20 09:00 05/13/20 09:09 Neurontin PO 600 mg BID GEORGETTE Administration Cefepime HCl 2 gm/ Sodium 100 mls @ 200 mls/hr 05/07/20 09:00 05/13/20 09:14 Chloride IVPB 100 mls 0100,0900,1700 GEORGETTE Administration Azithromycin 500 mg/ Sodium 250 mls @ 250 mls/hr 05/07/20 05:00 05/13/20 05: 18 Chloride IVPB 250 mls Q24HR GEORGETTE Administration Fentanyl Citrate 2,000 mcg/ 100 mls @ 0 mls/hr 05/10/20 08:23 05/13/20 02:55 Sodium Chloride IV 06/09/20 08:23 100 mls INF GEORGETTE Administration Protocol Per Protocol Dexmedetomidine HCl 400 mcg/ 100 mls @ 0 mls/hr 05/10/20 08:30 05/13/20 11:57 Sodium Chloride IVPB 100 mls INF GEORGETTE Administration Protocol Per Protocol Lorazepam 2 mg 05/10/20 08:23 05/12/20 20:54 Ativan SLOW IVP 06/09/20 08:23 2 mg Q1H PRN Administration Breakthrough agitation Methylprednisolone Sodium Succinate 20 mg 05/11/20 07:34 05/13/20 11:15 Solu-Medrol IVP 20 mg Q6HR GEORGETTE Administration Metoclopramide HCl 10 mg 05/11/20 07:45 05/13/20 09:14 Reglan IVP 10 mg Q6H GEORGETTE Administration Morphine Sulfate 2 mg 05/10/20 08:23 05/11/20 23:03 Morphine SLOW IVP 06/09/20 08:23 2 mg Q1H PRN Administration Breakthrough Pain/Agitation Pantoprazole Sodium 40 mg 05/07/20 09:00 05/13/20 09:08 Protonix IVP 40 mg DAILY GEORGETTE Administration Propofol 1,000 mg 05/10/20 08:23 05/13/20 09:08 Diprivan IV 06/09/20 08:23 1,000 mg INF PRN Administration TO ACHIEVE GOAL RASS Protocol Sodium Chloride 10 ml 05/11/20 21:00 05/13/20 09:09 Flush - Normal Saline IVF 10 ml Q12HR GEORGETTE Administration - Exam General Appearance: ill appearing Eye: PERRL, anicteric sclera ENT: no oropharyngeal lesions, dry oral mucosa Neck: supple, no JVD Heart: RRR, no murmur Respiratory: no wheezes, no rales Gastrointestinal: soft, non-tender, non-distended, normal bowel sounds Extremities: no cyanosis, 1+ LE edema Neurological: cranial nerve grossly intact, no focal deficits Hosp A/P (1) Acute respiratory failure with hypoxia Code(s): J96.01 - ACUTE RESPIRATORY FAILURE WITH HYPOXIA Status: Acute (2) COPD exacerbation Code(s): J44.1 - CHRONIC OBSTRUCTIVE PULMONARY DISEASE W (ACUTE) EXACERBATION Status: Acute (3) NSTEMI (non-ST elevated myocardial infarction) Code(s): I21.4 - NON-ST ELEVATION (NSTEMI) MYOCARDIAL INFARCTION Status: Acute (4) Anxiety disorder Code(s): F41.9 - ANXIETY DISORDER, UNSPECIFIED Status: Chronic Qualifiers: Anxiety disorder type: generalized anxiety disorder Qualified Code(s): F41.1 - Generalized anxiety disorder (5) HTN (hypertension) Code(s): I10 - ESSENTIAL (PRIMARY) HYPERTENSION Status: Chronic Qualifiers: Hypertension type: essential hypertension Qualified Code(s): I10 - Essential (primary) hypertension (6) PVD (peripheral vascular disease) Code(s): I73.9 - PERIPHERAL VASCULAR DISEASE, UNSPECIFIED Status: Chronic (7) Dyslipidemia Code(s): E78.5 - HYPERLIPIDEMIA, UNSPECIFIED Status: Chronic - Plan got intubated for progressive sob and anxiety on admission is on buspar, lexapro, klonopin for mood disorder/anxiety continue steroids, duonebs, brovana and pulmicort nebs, aspirin, pletal, gabapentin, zithromax and cefepime nstemi is type 2 due to demand ischemia from copd exac hemostable patient is not tolerating weaning trials and family are for compassionate extubation on saturday per staff
[2020-05-13 13:28] VITALS: BMI 35.5
[2020-05-13] MEDS ORDERED: Scopolamine 1.5 mg/72 hour Patch TOP PRN (17:01)
[2020-05-14] MEDS: Cefepime 2 GM in Sodium Chloride 0.9% 100 ML IVPB SCH ×3 (00:33→17:46)
[2020-05-14] MEDS: Propofol 1,000 MG/100 ML VIAL IV PRN ×5 (00:33→17:46)
[2020-05-14] MEDS: Metoclopramide HCl 10 MG/2 ML VIAL IVP SCH ×4 (02:12→20:24)
[2020-05-14] MEDS: Azithromycin 500 MG in Sodium Chloride 0.9% 250 ML 250 ML IVPB SCH (04:44)
[2020-05-14] MEDS: methylPREDNISolone Sod Succ 40 MG VIAL IVP SCH ×3 (05:16→17:46)
[2020-05-14 06:25] LABS: Hemoglobin 10.4 g/dL (12.0-16.0); Mean Corpuscular HGB CONC 32.7 g/dL (32.0-36.0); Mean Corpuscular Hemoglobin 32.8 pg (27.0-31.0); Mean Platelet Volume 10.2 fL (7.4-10.4); Platelet Count 153 thou/uL (130-400); RBC Distribution Width 13.4 % (11.5-14.5); Red Blood Cell (RBC) Count 3.18 mill/uL (4.20-5.40); White Blood Cell (WBC) Count 14.2 thou/uL (4.8-10.8)
[2020-05-14 06:41] LABS: Anion Gap 13 mmol/L (10-20); BUN (Urea Nitrogen) 49 mg/dL (9.8-20.1); Calc. Creatinine Clearance 80 mL/min (70-130); Carbon Dioxide 25 mmol/L (23-31); Chloride 103 mmol/L (98-107); Estimated GFR-MDRD 67; Glucose 153 mg/dL (83-110); Sodium 136 mmol/L (136-145)
[2020-05-14 06:48] LABS: Band 2 % (5-11); Lymphocytes 12 % (21-51); MDiff Complete? YES; Monocytes 8 % (0-10); Myelocyte 2 % (0-0); Neutrophil 76 % (42-75)
[2020-05-14] MEDS: Arformoterol 15 MCG/2 ML NEB NEB SCH ×2 (07:47→18:36)
[2020-05-14] MEDS: Budesonide 0.25 MG/2 ML NEB NEB SCH ×2 (07:47→18:36)
[2020-05-14] MEDS: Enoxaparin Sodium 40 MG/0.4 ML SYRINGE SC SCH (09:15)
[2020-05-14] MEDS: Pantoprazole 40 MG VIAL IVP SCH (09:15)
[2020-05-14] MEDS: Gabapentin 300 MG CAP PO SCH ×2 (09:17→20:24)
[2020-05-14] MEDS: busPIRone HCl 10 MG TAB PER TUBE SCH ×2 (09:17→20:25)
[2020-05-14] MEDS: Aspirin Chewable 81 MG TAB PER TUBE SCH (09:18)
[2020-05-14] MEDS: Cilostazol 100 MG TAB PER TUBE SCH ×2 (09:18→17:46)
[2020-05-14] MEDS: Escitalopram Oxalate 20 mg Tablet PER TUBE SCH (09:18)
--- NOTE | 2020-05-14 09:37 | PRG ---
DATE OF SERVICE: 05/14/2020 SUBJECTIVE: This morning, she was intubated in the vent, sedated. OBJECTIVE: VITAL SIGNS: Pulse 80, blood pressure 179/86, saturations 90%, respirations 20, afebrile. NEUROLOGIC: Sedated. CHEST: Decreased breath sounds. No wheezing. CARDIAC: Normal S1 and S2. No gallops. ABDOMEN: No masses. LABORATORY DATA: Unremarkable. X-ray shows bilateral small pleural effusion. ASSESSMENT: 1. Respiratory failure. 2. DNR. 3. Major anxiety. 4. Pneumonia. PLAN: Family to consider comfort extubation. In the meantime, we will continue present antibiotics, steroids, neb treatment. Job ID: [id number]
--- NOTE | 2020-05-14 12:13 | PDOC.HOSPP ---
- Subjective Encounter Date: 05/14/20 Encounter Time: 11:45 Subjective: on vent, sedated, not in distress - Objective Vital Signs & Weight: Vital Signs (12 hours) Temp Pulse Resp BP Pulse Ox 05/14/20 12:00 97.8 F 15 05/14/20 10:32 64 138/43 L 05/14/20 10:00 15 05/14/20 07:49 97 05/14/20 07:48 80 197/80 H 05/14/20 07:47 22 H 05/14/20 06:00 15 05/14/20 04:00 97.6 F 17 05/14/20 02:01 73 125/42 L 05/14/20 02:00 15 Weight Admit Weight 200 lb Weight 207 lb 0.225 oz Most Recent Monitor Data Heart Rate from ECG 66 NIBP 193/51 NIBP BP-Mean 120 Respiration from ECG 26 SpO2 96 I&O: 05/13/20 05/14/20 05/15/20 06:59 06:59 06:59 Intake Total 2246.0 3008.2 250 Output Total 1700 1920 390 Balance 546.0 1088.2 -140 Result Diagrams: 05/14/20 05:59 05/14/20 05:59 Hospitalist ROS - Medication Medications: Active Medications Generic Name Dose Route Start Last Admin Trade Name Freq PRN Reason Stop Dose Admin Albuterol/Ipratropium 3 ml 05/07/20 10:30 05/14/20 10:32 Duoneb NEB 3 ml [id number] GEORGETTE Administration Arformoterol Tartrate 15 mcg 05/07/20 18:30 05/14/20 07:47 Brovana NEB 15 mcg BID-RT GEORGETTE Administration Aspirin 81 mg 05/07/20 09:00 05/14/20 09:18 Aspirin Chewable PER TUBE 81 mg DAILY GEORGETTE Administration Budesonide 0.25 mg 05/07/20 18:30 05/14/20 07:47 Pulmicort Neb Solution NEB 0.25 mg BID-RT GEORGETTE Administration Buspirone HCl 30 mg 05/07/20 09:00 05/14/20 09:17 Buspar PER TUBE 30 mg BID GEORGETTE Administration Cilostazol 100 mg 05/07/20 16:30 05/14/20 09:18 Pletal PER TUBE 100 mg BID-AC GEORGETTE Administration Enoxaparin Sodium 40 mg 05/07/20 09:00 05/14/20 09:15 Lovenox SC 40 mg 0900 GEORGETTE Administration Escitalopram Oxalate 20 mg 05/07/20 09:00 05/14/20 09:18 Lexapro PER TUBE 20 mg QAM GEORGETTE Administration Gabapentin 600 mg 05/07/20 09:00 05/14/20 09:17 Neurontin PO 600 mg BID GEORGETTE Administration Cefepime HCl 2 gm/ Sodium 100 mls @ 200 mls/hr 05/07/20 09:00 05/14/20 09:14 Chloride IVPB 100 mls 0100,0900,1700 GEORGETTE Administration Azithromycin 500 mg/ Sodium 250 mls @ 250 mls/hr 05/07/20 05:00 05/14/20 04: 44 Chloride IVPB 250 mls Q24HR GEORGETTE Administration Fentanyl Citrate 2,000 mcg/ 100 mls @ 0 mls/hr 05/10/20 08:23 05/13/20 23:10 Sodium Chloride IV 06/09/20 08:23 100 mls INF GEORGETTE Administration Protocol Per Protocol Dexmedetomidine HCl 400 mcg/ 100 mls @ 0 mls/hr 05/10/20 08:30 05/13/20 11:57 Sodium Chloride IVPB 100 mls INF GEORGETTE Administration Protocol Per Protocol Lorazepam 2 mg 05/10/20 08:23 05/12/20 20:54 Ativan SLOW IVP 06/09/20 08:23 2 mg Q1H PRN Administration Breakthrough agitation Methylprednisolone Sodium Succinate 20 mg 05/11/20 07:34 05/14/20 05:16 Solu-Medrol IVP 20 mg Q6HR GEORGETTE Administration Metoclopramide HCl 10 mg 05/11/20 07:45 05/14/20 09:19 Reglan IVP Not Given Q6H GEORGETTE Morphine Sulfate 2 mg 05/10/20 08:23 05/11/20 23:03 Morphine SLOW IVP 06/09/20 08:23 2 mg Q1H PRN Administration Breakthrough Pain/Agitation Pantoprazole Sodium 40 mg 05/07/20 09:00 05/14/20 09:15 Protonix IVP 40 mg DAILY GEORGETTE Administration Propofol 1,000 mg 05/10/20 08:23 05/14/20 09:15 Diprivan IV 06/09/20 08:23 1,000 mg INF PRN Administration TO ACHIEVE GOAL RASS Protocol Scopolamine 3 mg 05/13/20 17:01 05/13/20 17:58 Transderm Scop TOP 3 mg Q72H PRN Administration .SECRETIONS Sodium Chloride 10 ml 05/11/20 21:00 05/14/20 09:19 Flush - Normal Saline IVF 10 ml Q12HR GEORGETTE Administration - Exam General Appearance: ill appearing Eye: PERRL, anicteric sclera ENT: no oropharyngeal lesions, dry oral mucosa Neck: supple, no JVD Heart: RRR, no murmur Respiratory: no wheezes, no rales, rhonchi Gastrointestinal: soft, non-tender, non-distended, normal bowel sounds Extremities: no cyanosis, 1+ LE edema Neurological: cranial nerve grossly intact, no focal deficits Hosp A/P (1) Acute respiratory failure with hypoxia Code(s): J96.01 - ACUTE RESPIRATORY FAILURE WITH HYPOXIA Status: Acute (2) COPD exacerbation Code(s): J44.1 - CHRONIC OBSTRUCTIVE PULMONARY DISEASE W (ACUTE) EXACERBATION Status: Acute (3) NSTEMI (non-ST elevated myocardial infarction) Code(s): I21.4 - NON-ST ELEVATION (NSTEMI) MYOCARDIAL INFARCTION Status: Acute (4) Anxiety disorder Code(s): F41.9 - ANXIETY DISORDER, UNSPECIFIED Status: Chronic Qualifiers: Anxiety disorder type: generalized anxiety disorder Qualified Code(s): F41.1 - Generalized anxiety disorder (5) HTN (hypertension) Code(s): I10 - ESSENTIAL (PRIMARY) HYPERTENSION Status: Chronic Qualifiers: Hypertension type: essential hypertension Qualified Code(s): I10 - Essential (primary) hypertension (6) PVD (peripheral vascular disease) Code(s): I73.9 - PERIPHERAL VASCULAR DISEASE, UNSPECIFIED Status: Chronic (7) Dyslipidemia Code(s): E78.5 - HYPERLIPIDEMIA, UNSPECIFIED Status: Chronic - Plan got intubated for progressive sob and anxiety on admission, 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 is on buspar, lexapro, klonopin for mood disorder/anxiety continue steroids, duonebs, brovana and pulmicort nebs, aspirin, pletal, gabapentin, zithromax and cefepime nstemi is type 2 due to demand ischemia from copd exac hemostable patient is not tolerating weaning trials and family are for compassionate extubation on saturday per staff
[2020-05-14] MEDS: Lorazepam 2 MG/ML VIAL SLOW IVP PRN ×2 (14:44→20:24)
[2020-05-14] MEDS: fentaNYL Citrate/PF 2,000 MCG in Sodium Chloride 0.9% 60 ML IV SCH (17:46)
[2020-05-15] MEDS: methylPREDNISolone Sod Succ 40 MG VIAL IVP SCH ×4 (00:55→18:06)
[2020-05-15] MEDS: Cefepime 2 GM in Sodium Chloride 0.9% 100 ML IVPB SCH ×3 (01:48→18:04)
[2020-05-15] MEDS: Metoclopramide HCl 10 MG/2 ML VIAL IVP SCH ×4 (01:48→20:57)
[2020-05-15] MEDS: Azithromycin 500 MG in Sodium Chloride 0.9% 250 ML 250 ML IVPB SCH (04:22)
[2020-05-15] MEDS: Propofol 1,000 MG/100 ML VIAL IV PRN ×3 (04:22→12:22)
[2020-05-15 04:59] LABS: Anion Gap 12 mmol/L (10-20); BUN (Urea Nitrogen) 48 mg/dL (9.8-20.1); Calc. Creatinine Clearance 80 mL/min (70-130); Calcium 8.2 mg/dL (7.8-10.44); Carbon Dioxide 25 mmol/L (23-31); Chloride 103 mmol/L (98-107); Estimated GFR-MDRD 67; Glucose 107 mg/dL (83-110); Potassium 5.2 mmol/L (3.5-5.1); Sodium 135 mmol/L (136-145)
[2020-05-15 07:05] LABS: Band 9 % (5-11); Hemoglobin 10.4 g/dL (12.0-16.0); Lymphocytes 7 % (21-51); MDiff Complete? YES; Mean Corpuscular HGB CONC 32.7 g/dL (32.0-36.0); Mean Corpuscular Hemoglobin 32.8 pg (27.0-31.0); Mean Platelet Volume 10.4 fL (7.4-10.4); Monocytes 9 % (0-10); Neutrophil 75 % (42-75); Platelet Count 184 thou/uL (130-400); RBC Distribution Width 13.3 % (11.5-14.5); Red Blood Cell (RBC) Count 3.19 mill/uL (4.20-5.40); White Blood Cell (WBC) Count 21.9 thou/uL (4.8-10.8)
[2020-05-15] MEDS: Budesonide 0.25 MG/2 ML NEB NEB SCH (07:07)
[2020-05-15] MEDS: Arformoterol 15 MCG/2 ML NEB NEB SCH (07:07)
[2020-05-15] MEDS: Pantoprazole 40 MG VIAL IVP SCH (08:30)
[2020-05-15] MEDS: Enoxaparin Sodium 40 MG/0.4 ML SYRINGE SC SCH (08:30)
[2020-05-15] MEDS: Gabapentin 300 MG CAP PO SCH ×2 (08:30→20:57)
[2020-05-15] MEDS: Escitalopram Oxalate 20 mg Tablet PER TUBE SCH (08:30)
[2020-05-15] MEDS: Cilostazol 100 MG TAB PER TUBE SCH ×2 (08:30→16:42)
[2020-05-15] MEDS: Aspirin Chewable 81 MG TAB PER TUBE SCH (08:30)
[2020-05-15] MEDS: busPIRone HCl 10 MG TAB PER TUBE SCH ×2 (08:55→20:57)
--- NOTE | 2020-05-15 09:11 | PRG ---
DATE OF SERVICE: 05/15/2020 SUBJECTIVE: Coco Jolly is a DNR. She remains unresponsive. OBJECTIVE: VITAL SIGNS: Pulse 69, blood pressure , and saturations 95%. CHEST: Anterior rhonchi. CARDIAC: Normal S1 and S2. No gallops. ABDOMEN: . LABORATORY DATA: White count is 21,000. Lytes are normal. ASSESSMENT: 1. Respiratory failure. 2. Chronic obstructive pulmonary disease. 3. Morbid obesity. 4. Major anxiety. PLAN: Family is to do withdraw care today. I have added morphine and Ativan for comfort measures. Job ID: [id number]
--- NOTE | 2020-05-15 12:02 | PDOC.HOSPP ---
- Subjective Encounter Date: 05/15/20 Encounter Time: 08:00 Subjective: on minimal sedation, waking up. Is on vent - Objective Vital Signs & Weight: Vital Signs (12 hours) Temp Pulse Resp BP Pulse Ox 05/15/20 10:46 71 134/41 L 05/15/20 10:00 13 05/15/20 08:00 98.8 F 15 93 L 05/15/20 07:07 69 125/41 L 05/15/20 06:00 13 05/15/20 04:00 15 05/15/20 03:54 98.8 F 05/15/20 02:39 90 130/43 L 05/15/20 02:00 13 Weight Admit Weight 200 lb Weight 207 lb 0.225 oz Most Recent Monitor Data Heart Rate from ECG 74 NIBP 114/40 NIBP BP-Mean 50 Respiration from ECG 25 SpO2 93 I&O: 05/14/20 05/15/20 05/16/20 06:59 06:59 06:59 Intake Total 3008.2 2577.7 150 Output Total 1920 1645 425 Balance 1088.2 932.7 -275 Result Diagrams: 05/15/20 04:19 05/15/20 04:19 Hospitalist ROS - Medication Medications: Active Medications Generic Name Dose Route Start Last Admin Trade Name Freq PRN Reason Stop Dose Admin Albuterol/Ipratropium 3 ml 05/07/20 10:30 05/15/20 10:46 Duoneb NEB 3 ml [id number] GEORGETTE Administration Arformoterol Tartrate 15 mcg 05/07/20 18:30 05/15/20 07:07 Brovana NEB 15 mcg BID-RT GEORGETTE Administration Aspirin 81 mg 05/07/20 09:00 05/15/20 08:30 Aspirin Chewable PER TUBE 81 mg DAILY GEORGETTE Administration Budesonide 0.25 mg 05/07/20 18:30 05/15/20 07:07 Pulmicort Neb Solution NEB 0.25 mg BID-RT GEORGETTE Administration Buspirone HCl 30 mg 05/07/20 09:00 05/15/20 08:55 Buspar PER TUBE 30 mg BID GEORGETTE Administration Cilostazol 100 mg 05/07/20 16:30 05/15/20 08:30 Pletal PER TUBE 100 mg BID-AC GEORGETTE Administration Enoxaparin Sodium 40 mg 05/07/20 09:00 05/15/20 08:30 Lovenox SC 40 mg 0900 GEORGETTE Administration Escitalopram Oxalate 20 mg 05/07/20 09:00 05/15/20 08:30 Lexapro PER TUBE 20 mg QAM GEORGETTE Administration Gabapentin 600 mg 05/07/20 09:00 05/15/20 08:30 Neurontin PO 600 mg BID GEORGETTE Administration Cefepime HCl 2 gm/ Sodium 100 mls @ 200 mls/hr 05/07/20 09:00 05/15/20 08:54 Chloride IVPB 100 mls 0100,0900,1700 GEORGETTE Administration Azithromycin 500 mg/ Sodium 250 mls @ 250 mls/hr 05/07/20 05:00 05/15/20 04: 22 Chloride IVPB 250 mls Q24HR GEORGETTE Administration Fentanyl Citrate 2,000 mcg/ 100 mls @ 0 mls/hr 05/10/20 08:23 05/14/20 17:46 Sodium Chloride IV 06/09/20 08:23 100 mls INF GEORGETTE Administration Protocol Per Protocol Dexmedetomidine HCl 400 mcg/ 100 mls @ 0 mls/hr 05/10/20 08:30 05/15/20 08:29 Sodium Chloride IVPB 100 mls INF GEORGETTE Administration Protocol Per Protocol Lorazepam 2 mg 05/10/20 08:23 05/14/20 20:24 Ativan SLOW IVP 06/09/20 08:23 2 mg Q1H PRN Administration Breakthrough agitation Methylprednisolone Sodium Succinate 20 mg 05/11/20 07:34 05/15/20 06:13 Solu-Medrol IVP 20 mg Q6HR GEORGETTE Administration Metoclopramide HCl 10 mg 05/11/20 07:45 05/15/20 08:31 Reglan IVP Not Given Q6H [facility] Morphine Sulfate 2 mg 05/10/20 08:23 05/11/20 23:03 Morphine SLOW IVP 06/09/20 08:23 2 mg Q1H PRN Administration Breakthrough Pain/Agitation Pantoprazole Sodium 40 mg 05/07/20 09:00 05/15/20 08:30 Protonix IVP 40 mg DAILY GEORGETTE Administration Propofol 1,000 mg 05/10/20 08:23 05/15/20 08:30 Diprivan IV 06/09/20 08:23 1,000 mg INF PRN Administration TO ACHIEVE GOAL RASS Protocol Scopolamine 3 mg 05/13/20 17:01 05/13/20 17:58 Transderm Scop TOP 3 mg Q72H PRN Administration .SECRETIONS Sodium Chloride 10 ml 05/11/20 21:00 05/15/20 08:55 Flush - Normal Saline IVF 10 ml Q12HR GEORGETTE Administration - Exam General Appearance: ill appearing Eye: PERRL, anicteric sclera ENT: no oropharyngeal lesions, dry oral mucosa Neck: supple, no JVD Heart: RRR, no murmur Respiratory: no wheezes, no rales, rhonchi Gastrointestinal: soft, non-tender, non-distended, normal bowel sounds Extremities: no cyanosis, 1+ LE edema Neurological: cranial nerve grossly intact, no focal deficits Hosp A/P (1) Acute respiratory failure with hypoxia Code(s): J96.01 - ACUTE RESPIRATORY FAILURE WITH HYPOXIA Status: Acute (2) COPD exacerbation Code(s): J44.1 - CHRONIC OBSTRUCTIVE PULMONARY DISEASE W (ACUTE) EXACERBATION Status: Acute (3) NSTEMI (non-ST elevated myocardial infarction) Code(s): I21.4 - NON-ST ELEVATION (NSTEMI) MYOCARDIAL INFARCTION Status: Acute (4) Anxiety disorder Code(s): F41.9 - ANXIETY DISORDER, UNSPECIFIED Status: Chronic Qualifiers: Anxiety disorder type: generalized anxiety disorder Qualified Code(s): F41.1 - Generalized anxiety disorder (5) HTN (hypertension) Code(s): I10 - ESSENTIAL (PRIMARY) HYPERTENSION Status: Chronic Qualifiers: Hypertension type: essential hypertension Qualified Code(s): I10 - Essential (primary) hypertension (6) PVD (peripheral vascular disease) Code(s): I73.9 - PERIPHERAL VASCULAR DISEASE, UNSPECIFIED Status: Chronic (7) Dyslipidemia Code(s): E78.5 - HYPERLIPIDEMIA, UNSPECIFIED Status: Chronic - Plan got intubated for progressive sob and anxiety on admission, 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 is on buspar, lexapro, klonopin for mood disorder/anxiety continue steroids, duonebs, brovana and pulmicort nebs, aspirin, pletal, gabapentin, zithromax and cefepime nstemi is type 2 due to demand ischemia from copd exac hemostable patient is not tolerating weaning trials and family are for compassionate extubation today per staff
[2020-05-15 12:22] VITALS: TEMP 98.4
[2020-05-15] MEDS: Morphine 2 MG/ML VIAL SLOW IVP PRN (15:14)
[2020-05-15] MEDS: Lorazepam 2 MG/ML VIAL SLOW IVP PRN ×7 (15:16→23:10)
[2020-05-15] MEDS: Morphine 10 MG/ML VIAL SLOW IVP PRN ×7 (15:43→23:08)
[2020-05-15] MEDS ORDERED: MORPHINE 10 MG/ML SYRINGE SLOW IVP PRN (18:50)
[2020-05-15 20:01] VITALS: BP 130/58
[2020-05-16] MEDS: Arformoterol 15 MCG/2 ML NEB NEB SCH ×2 (00:09→07:29)
[2020-05-16] MEDS: Budesonide 0.25 MG/2 ML NEB NEB SCH ×2 (00:10→07:29)
[2020-05-16] MEDS: Lorazepam 2 MG/ML VIAL SLOW IVP PRN ×3 (00:17→03:33)
[2020-05-16] MEDS: Morphine 10 MG/ML VIAL SLOW IVP PRN ×3 (00:17→03:33)
[2020-05-16] MEDS: methylPREDNISolone Sod Succ 40 MG VIAL IVP SCH ×2 (00:18→07:23)
[2020-05-16] MEDS: Cefepime 2 GM in Sodium Chloride 0.9% 100 ML IVPB SCH (00:21)
[2020-05-16] MEDS: Metoclopramide HCl 10 MG/2 ML VIAL IVP SCH (01:26)
[2020-05-16] MEDS: Azithromycin 500 MG in Sodium Chloride 0.9% 250 ML 250 ML IVPB SCH (01:26)
--- NOTE | 2020-05-16 15:54 | DIS ---
DATE OF ADMISSION: 05/07/2020 DATE OF DISCHARGE: 05/16/2020 DATE AND TIME OF : 05/16/2020 at 0357 hours. PRIMARY CAUSE OF : Chronic obstructive pulmonary disease exacerbation, likely end-stage from last 11 days, acute respiratory failure with hypoxia and hypercarbia secondary to chronic obstructive pulmonary disease. FACTORS CONTRIBUTING TO : Include hypertension, peripheral vascular disease, dyslipidemia, deconditioning, and severe anxiety disorder. BRIEF COURSE DURING HOSPITALIZATION: The patient initially got admitted on 05/07/2020 for complaints of worsening shortness of breath. The patient initially was on BiPAP and had to be intubated in ICU due to worsening hypoxia, severe anxiety, and tachypnea. The patient remained on ventilator for most of the time except the last 24 hours. The patient has had difficulty weaning due to severe anxiety and underlying end-stage COPD. She was also deconditioned. Multiple attempts at weaning were not successful. was in touch with the patient's and family. wanted to go in for compassionate extubation and withdrawal of care with comfort care only on the . She was extubated and was transferred to oncology floor. The patient breathed her last at 0357 hours on 05/16/2020. Body was released to home per hospital protocol. Job ID: [id number] [facility]
--- NOTE | 2020-05-26 00:38 | PQF ---
CLINICAL DOCUMENTATION CLARIFICATION FORM: Dear : Luis Shore MD Time: 05/25/2020 Please exercise your independent, professional judgment in responding to the clarification form. Clinical indicators are provided on the bottom of this form for your review Please check appropriate box(es): [ ] Sepsis due to: [ ] Severe sepsis with associated acute organ dysfunction: [ ] Acute Respiratory Failure [ ] Encephalopathy (metabolic) (septic) [ ] Disseminated Intravascular Coagulopathy (DIC) [ ] Additional/Other: please specify: [ ] Septic Shock [ ] Localized infection without sepsis [ ] SIRS due to non-infectious process (please specify etiology) [ ] with organ dysfunction [ ] without organ dysfunction [ ] Other diagnosis (Please specify if any) [ x ] Unable to determine In addition, please specify: Present on Admission (POA): [ ] Yes [ ] No [ ] Unable to determine Physician Signature: Date/Time: For continuity of documentation, please document condition throughout progress notes and discharge summary. Thank You. To be completed by CDI/Coding staff for physician review: w Present w Clinical Indicators - Signs / Symptoms / Labs w Results and Location in Medical Record w [ ] w Altered mental status, increased confusion, obtunded w w [ ] w Fever or hypothermia (<96.8 F/36 C or > 100.4 F/38C) w w [x ] w Acute respiratory failure related to COPD w Consult on 05/07 w [ x ] w Heart Rate/Tachycardia (>90 bpm), SBP<100mmHg w HR-110 - Consult on w [ ] w Decompensated heart failure w w [ ] w Metabolic acidosis Lactic Acid >2mmol/L OR 36mg/dL, w w [ ] w Oliguria , increase BUN/Cr, decreased GFR, elevated liver enzymes w w [ ] w Coag abnormalities, thrombocytopenia plts <100k w w [ ] w Shock-hypotension resistant to IV fluid boluses w w [ x] w WBC count (>12,000/mm^4 or <4000/mm^3 or 70% neuts, 10% bands) w WBC- 15.3 Lab on 05/10 w [ x ] w Blood pressure 110/39 w Consult on 05/07 w [ x] w PNA w H&P on 05/07 w Present w Risk Factors w Results and Location in Medical Record w [ ] w Infection/Bacteremia w w [ x] w Pneumonia, UTI, infected wound, gangrenous gall bladder Diabetes or Cancer w H&P on 05/07 w [ ] w Surgery / surgical instrumentation / trauma Ruptured/perforated bowel, ruptured appendix w w [ ] w Immunosuppression w w [ x] w Advancing Age: 79 yrs w H&P on 05/07 w Present w Treatments w Results and Location in Medical Record w [x ] w Initiation Sepsis Protocol ICU w Pt was activated as a sepsis alert ED provider report on 05/07 w [ x] w Had to be intubated in ICU due to hypoxia, Remained on ventilator w Discharge summary on 05/16 w [ ] w ID Consult w w [ x] w IV Antibiotics Vancomycin 1gm IV w Medications on 05/07 w [ ] w IV ?uids w w [ x ] w azithromycin 500mg w Medications from 05/07 to 05/16 w [ ] w Consultants; ID, GI, Pulmonary, Hematology w CDS/Floor Clerk Signature:RK Phone #: Date/Time: 05/25/2020 This is a permanent part of the Medical Record [facility]
--- NOTE | 2020-05-26 01:39 | PQF ---
CLINICAL DOCUMENTATION CLARIFICATION FORM: Dear : Silviano Smith MD Date / Time: 05/26/2020 Please exercise your independent, professional judgment in responding to the clarification form. Clinical indicators are provided on the bottom of this form for your review Please check appropriate box(es): Diastolic heart failure acquity as [ ] Acute [ ] Acute on Chronic [ x] Chronic [ ] Other diagnosis (Please specify if any) [ ] Unable to determine In addition, please specify: Present on Admission (POA): [ x ] Yes [ ] No [ ] Unable to determine Physician Signature: Date/Time: For continuity of documentation, please document condition throughout progress notes and discharge summary. Thank You. To be completed by CDI/Coding staff for physician review: Present Clinical Indicators - Signs / Symptoms / Labs Results and Location in Medical Record [ x] Ejection Fraction =60-65% Scanned progress notes on 05/09 [ x] Diastolic heart failure Scanned progress notes on 05/09 [ x ] Peripheral edema 1+LE edema Hospital progress notes on 05/10 [ x ] Elevated BNP 446.5 Lab on 05/07 [ x ] E/A flow reversal noted. Suggestive of diastolic dysfunction Echo on [ ] Orthopnea / SOB / dyspnea [ ] Pleural effusion / pulmonary edema [ x] Bilateral periphilar opacities, suspicious for edema, persist. Bilateral pleural and parenchymal opacities Chest x ray on 05/08 [ x] X-ray continues to show some mild pulmonary edema Progress notes on 05/09 Present Risk Factors Results and Location in Medical Record [ ] History of CAD/ischemic heart disease [ ] CKD Hypertension [ x ] NSTEMI Hospital progress notes on 05/08 Present Treatments Results and Location in Medical Record [ ] Administration of ANITA / ARB / BB [ ] Cardiac monitoring / telemetry/ECHO [ x ] Frusosemide 40 mg IV Medication on 05/09 [ ] Oxygen [ ] AICD [ ] Cardiology Consult CDS/[facility] Mechanic Helper Signature: RK Phone #: Date/Time: 05/26/2020 This is a permanent part of the Medical Record [facility]
== END 2020-05-16 03:57 | disposition expired | DRG 207 ==
LOC: ERS 23:46 → IMCU/EMU 05-07 02:02 → CCU 05-07 05:39 → ONC 05-15 19:56
PROVIDERS: ADMIT Internal Medicine; ATTEND Internal Medicine
PROC: 0BH17EZ Insertion of Endotracheal Airway into Trachea, Via Natural or Artificial Opening (ICD-10-PCS; principal; 2020-05-07)
PROC: 5A1955Z Respiratory Ventilation, Greater than 96 Consecutive Hours (ICD-10-PCS; 2020-05-07)
DX: J96.01 Acute respiratory failure with hypoxia (principal); J18.9 Pneumonia, unspecified organism; I21.A1 Myocardial infarction type 2; J44.1 Chronic obstructive pulmonary disease with (acute) exacerbation; E87.1 Hypo-osmolality and hyponatremia; J44.0 Chronic obstructive pulmonary disease with (acute) lower respiratory infection; I50.32 Chronic diastolic (congestive) heart failure; J96.02 Acute respiratory failure with hypercapnia; Z66 Do not resuscitate; Z51.5 Encounter for palliative care; F41.9 Anxiety disorder, unspecified; G25.81 Restless legs syndrome; E78.5 Hyperlipidemia, unspecified; I73.9 Peripheral vascular disease, unspecified; F32.9 Major depressive disorder, single episode, unspecified; R79.89 Other specified abnormal findings of blood chemistry; E66.01 Morbid (severe) obesity due to excess calories; G62.9 Polyneuropathy, unspecified; Z90.49 Acquired absence of other specified parts of digestive tract; Z90.710 Acquired absence of both cervix and uterus; Z88.2 Allergy status to sulfonamides; Z88.6 Allergy status to analgesic agent; Z87.891 Personal history of nicotine dependence; Z99.81 Dependence on supplemental oxygen; Z86.73 Personal history of transient ischemic attack (TIA), and cerebral infarction without residual deficits; Z98.42 Cataract extraction status, left eye; Z98.41 Cataract extraction status, right eye; Z68.35 Body mass index [BMI] 35.0-35.9, adult; I11.0 Hypertensive heart disease with heart failure; Z20.828 Contact with and (suspected) exposure to other viral communicable diseases
CPT/HCPCS: 36415; 36600; 71045; 80048; 80053; 82330; 82553; 82803; 82805; 83605; 83880; 84484; 85025; 87040; 87149; 93005; 93306; 94002; 94003; 94640; 94644; 94660; 96361; 96365; 96367; 96375; C9113; J0456; J0692; J1650; J1940; J2060; J2270; J2704; J2765; J2920; J2930; J3010; J3370; J3490; J7050; J7611; J7620; J7626; U0002